=== PATIENT | male | born 1950 | race Hispanic/Latino ===

== ENCOUNTER 2017-02-09 14:54 | Outpatient (CLI) | payer MEDICARE, MEDICAID ==
--- NOTE | 2017-02-09 17:05 | RAD ---
CHEST 2 VIEWS: Date: 02/09/17 HISTORY: Dyspnea. COMPARISON: Chest 2 views dated 08/24/16. FINDINGS: There are mild increased interstitial markings throughout the lungs. This is worse than on the elizabeth rison examination. No pneumothorax or effusion. Moderate spondylosis. Cardiac silhouette and mediastinal contours are similar. IMPRESSION: Increased interstitial markings from the prior examination, likely edema superimposed on chronic kyleigh nges. POS: [facility]
== END 2017-02-09 14:55 | disposition home or self-care (01) ==
LOC: RAD 14:54
PROVIDERS: ATTEND Internal Medicine Pulmonary Disease
DX: R06.00 Dyspnea, unspecified (principal)
CPT/HCPCS: 71020

== ENCOUNTER 2017-08-28 12:24 | Emergency (ER) | payer MEDICARE, OTHER ==
[2017-08-28] MEDS ORDERED: diphenhydrAMINE 25 MG CAP ONE (12:38)
[2017-08-28] MEDS ORDERED: Acetaminophen 500 MG TAB ONE (12:38)
== END 2017-08-28 12:52 | disposition home or self-care (01) ==
LOC: ERS 12:24
DX: T63.461A Toxic effect of venom of wasps, accidental (unintentional), initial encounter (principal); E11.9 Type 2 diabetes mellitus without complications; E03.9 Hypothyroidism, unspecified; F41.9 Anxiety disorder, unspecified; F32.9 Major depressive disorder, single episode, unspecified; F17.210 Nicotine dependence, cigarettes, uncomplicated; I25.10 Atherosclerotic heart disease of native coronary artery without angina pectoris; K21.9 Gastro-esophageal reflux disease without esophagitis; I25.2 Old myocardial infarction; I10 Essential (primary) hypertension; Z79.82 Long term (current) use of aspirin; Z79.899 Other long term (current) drug therapy; Z79.4 Long term (current) use of insulin
CPT/HCPCS: 99282

== ENCOUNTER 2017-09-25 07:31 | Day surgery (SDC) | payer MEDICARE, MEDICAID ==
[2017-09-24 13:34] VITALS: BMI 35.3
[~2017-09-25 07:31] MED LIST: Prevnar 13-Val Conj/PF 0.5 ML SYRINGE IM ONE
[2017-09-25 08:18] LABS: BUN (Urea Nitrogen) 12 mg/dL (8.4-25.7); Calc. Creatinine Clearance 120 mL/min (70-130); Estimated GFR-MDRD Greater than 90
--- NOTE | 2017-09-25 09:17 | RAD ---
LUMBAR SPINE MYELOGRAM: DATE: 09/25/17. HISTORY: Spondylosis and radiculopathy, back pain. FINDINGS: Audio Visual Production Specialist images demonstrates multilevel disk space narrowing and osteophyte formation involving the lowe r thoracic spine and the lower lumbar spine. There is multilevel facet hypertrophy involving the low er lumbar spine. Informed consent obtained prior to the procedure. The patient was placed on the fluoroscopic table in the oblique prone position and the skin overlying the lumbar spine was prepped and draped in normal sterile fashion. The skin overlying the L4-5 leve l was anesthetized with 1% buffered Lidocaine. With intermittent fluoroscopic guidance, a 22-gauge spinal needle was advanced into the thecal sac at L4-5 and removal of the stylette yields clear cerebrospinal fluid. Subsequently, approximately 10 c c of Isovue-200 was injected, outlining nerve roots of the cauda equina and filling the thecal sac. The needle was removed. The patient tolerated the procedure well and was sent to the CT scanner for CT myelogram of the lumbar spine. IMPRESSION: Successful lumbar spine myelogram as described above. CT myelogram of the lumbar spine to follow. POS: [facility]
[2017-09-25 09:30] VITALS: BP 140/63; TEMP 98.2
--- NOTE | 2017-09-25 10:09 | CT ---
MYELOGRAM OF THE LUMBAR SPINE: DATE: 09/25/17. HISTORY: Back pain, lumbar radiculopathy. TECHNIQUE: Serial axial CT imaging is obtained at 2.5 mm intervals from the lower thoracic spine through the sac rum following the intrathecal administration of Isovue-200. Coronal and sagittal reformatted imaging provided. FINDINGS: Director Life images demonstrates a total hip arthroplasty on the right. There is a small left adrenal nodule measuring 1.2 cm with Hounsfield units of -3, evidence of a marcos gn left adrenal adenoma. There are scattered atherosclerotic calcifications of the abdominal aorta a nd its branches, especially the infrarenal abdominal aorta. There is no widening of the sacroiliac joints. There is good opacification of the contents of the th ecal sac. There is no anterolisthesis or retrolisthesis seen within the lumbar spine. T11-12: Minimal disk bulge and mild bilateral facet hypertrophy with no significant central canal o r neural foraminal stenosis. T12-L1: There is a small left foraminal disk protrusion. There is no significant central canal or n eural foraminal stenosis. L1-2: Mild disk space narrowing and mild bilateral facet hypertrophy with no significant central can al or neural foraminal stenosis. L2-3: Bilateral facet hypertrophy and hypertrophy of the ligamentum flavum noted, right greater than left. Mild disk bulge. Mild central canal stenosis. Mild bilateral neural foraminal stenosis, rig ht greater than left. L3-4: There is disk space narrowing, degenerative end plate change, and vacuum disk formation. Ther e is bilateral facet hypertrophy. There is mild disk bulge with mild central canal stenosis. There is moderate bilateral neural foraminal stenosis, right greater than left. There is a vacuum disk. L4-5: Bilateral laminectomy change noted. Mild disk bulge. No central canal stenosis. Moderate ri ght and moderate left neural foraminal stenosis. L5-S1: Bilateral mild facet hypertrophy, right greater than left. There is a questionable very smal l left paracentral disk protrusion, best seen on sagittal image 34. There is no significant central canal or neural foraminal stenosis. There is mild osteophyte encroachment on the left neural foramen . The conus medullaris terminates at the T12-L1 level. IMPRESSION: 1. There is no acute fracture or evidence of dislocation. No worrisome lytic or blastic bone lesion . 2. Multilevel lumbar spine degenerative change as described above. POS: [facility]
[2017-09-25] MEDS ORDERED: Iopamidol-M 200 41% 20 ML VIAL ONE (15:13)
== END 2017-09-25 10:10 | disposition home or self-care (01) ==
LOC: RAD 07:31
PROVIDERS: ATTEND Anesthesiology
DX: M47.26 Other spondylosis with radiculopathy, lumbar region (principal); M46.1 Sacroiliitis, not elsewhere classified; M70.62 Trochanteric bursitis, left hip; M70.61 Trochanteric bursitis, right hip; G89.29 Other chronic pain; M06.9 Rheumatoid arthritis, unspecified; I11.0 Hypertensive heart disease with heart failure; I50.9 Heart failure, unspecified; G47.30 Sleep apnea, unspecified; Z68.35 Body mass index [BMI] 35.0-35.9, adult; Z79.02 Long term (current) use of antithrombotics/antiplatelets; Z79.899 Other long term (current) drug therapy
CPT/HCPCS: 36415; 62304; 72132; 82565; 84520

== ENCOUNTER 2018-01-15 13:31 | Outpatient (CLI) | payer MEDICARE, MEDICAID ==
--- NOTE | 2018-01-16 07:39 | RAD ---
TWO VIEWS CHEST: HISTORY: Dyspnea. DATE: 11/14/17. COMPARISON: Previous exam from 02/09/17. FINDINGS: Two views chest demonstrate a dual-lead intracardiac defibrillator. Pulmonary vascular congestion is seen. Extensive bilateral interstitial densities seen. These have appear to have increased since the previ ous exam and may represent interstitial edema or fibrotic changes. There may also be some areas of s ubtle patchy airspace opacities in the right lower lobe. This may represent an area of right lower l obe pneumonia. IMPRESSION: 1. Area of increasing opacity in the right lung base compatible with possible pneumonia. 2. Increased interstitial markings compatible with interstitial fibrosis or edema. Followup films t o resolution recommended. POS: [facility]
== END 2018-01-15 13:32 | disposition home or self-care (01) ==
LOC: RAD 13:31
PROVIDERS: ATTEND Internal Medicine Pulmonary Disease
DX: R06.00 Dyspnea, unspecified (principal); R91.8 Other nonspecific abnormal finding of lung field
CPT/HCPCS: 71046

== ENCOUNTER 2018-02-20 13:27 | Outpatient (CLI) | payer MEDICARE, MEDICAID | END 2018-02-20 13:28 | disposition home or self-care (01) | LOC: CP 13:27 | PROVIDERS: ATTEND Internal Medicine Pulmonary Disease | DX: J44.9 Chronic obstructive pulmonary disease, unspecified (principal); G47.33 Obstructive sleep apnea (adult) (pediatric) | CPT/HCPCS: 94010; 94727 ==

== ENCOUNTER 2018-03-21 19:30 | Outpatient (CLI) | payer MEDICARE, MEDICAID | END 2018-03-21 19:31 | disposition home or self-care (01) | LOC: SLEEPLAB 19:30 | PROVIDERS: ATTEND Internal Medicine Pulmonary Disease | DX: G47.33 Obstructive sleep apnea (adult) (pediatric) (principal); R06.83 Snoring; G47.00 Insomnia, unspecified; J44.9 Chronic obstructive pulmonary disease, unspecified; F32.9 Major depressive disorder, single episode, unspecified; E66.9 Obesity, unspecified; G47.61 Periodic limb movement disorder; Z68.37 Body mass index [BMI] 37.0-37.9, adult | CPT/HCPCS: 95811 ==

== ENCOUNTER 2019-03-27 14:30 | Outpatient (CLI) | payer MEDICARE, MEDICAID ==
--- NOTE | 2019-03-27 15:09 | RAD ---
4 views cervical spine: 03/27/2019 COMPARISON: None HISTORY: Cervical pain, headaches FINDINGS: Frontal, lateral, swimmer's lateral view, and open-mouth odontoid view provided. Moderate degenerative change at the atlantoaxial interspace. Mild anterior osteophyte formation at C4 -5 and C5-6. Open-mouth odontoid view demonstrates a normal-appearing dens and C1-2 articulation. Incompletely imaged transvenous pacing leads are present. Cervicothoracic junction appears grossly un remarkable on the swimmer's lateral view. No prevertebral soft tissue swelling. IMPRESSION: Chronic findings as above.
== END 2019-03-27 14:31 | disposition home or self-care (01) ==
LOC: BICRAD 14:30
PROVIDERS: ATTEND Anesthesiology Pain Medicine
DX: M54.2 Cervicalgia (principal); M47.812 Spondylosis without myelopathy or radiculopathy, cervical region; M25.78 Osteophyte, vertebrae
CPT/HCPCS: 72040

== ENCOUNTER 2019-05-15 03:30 | Inpatient (IN) | payer MEDICARE, MEDICAID ==
[2019-05-15] MEDS ORDERED: Morphine 4 MG/ML VIAL ONE ×2 (03:53→05:40)
[2019-05-15 03:58] LABS: #Eosinphils 0.3 thou/uL (0.0-0.7); #Lymphocytes 1.2 thou/uL (1.20-3.40); #Monocytes 0.3 thou/uL (0.11-0.59); #Neutrophils 11.9 thou/uL (1.40-6.50); %Basophils 0.2 % (0.0-1.0); %Eosinophils 2.2 % (0.0-10.0); %Lymphocytes 8.4 % (21.0-51.0); %Neutrophils 87.2 % (42.0-75.0); Hemoglobin 13.7 g/dL (14.0-18.0); Mean Corpuscular HGB CONC 32.6 g/dL (32.0-36.0); Mean Corpuscular Hemoglobin 30.9 pg (27.0-31.0); Mean Corpuscular Volume 94.8 fL (78.0-98.0); Mean Platelet Volume 7.5 fL (7.4-10.4); Platelet Count 281 thou/uL (130-400); RBC Distribution Width 12.5 % (11.5-14.5); Red Blood Cell (RBC) Count 4.43 mill/uL (4.70-6.10); White Blood Cell (WBC) Count 13.7 thou/uL (4.8-10.8)
[2019-05-15 04:06] LABS: PTT 29.6 SEC (22.9-36.1); Prothrombin Time 13.5 SEC (12.0-14.7)
[2019-05-15 04:18] LABS: ALT (SGPT) 15 U/L (8-55); AST (SGOT) 15 U/L (5-34); Alkaline Phosphatase 126 U/L (40-110); Anion Gap 15 mmol/L (10-20); BUN (Urea Nitrogen) 15 mg/dL (8.4-25.7); Bilirubin, Total 0.3 mg/dL (0.2-1.2); Calc. Creatinine Clearance 0 mL/min (70-130); Calcium 9.4 mg/dL (7.8-10.44); Carbon Dioxide 23 mmol/L (23-31); Chloride 104 mmol/L (98-107); Estimated GFR-MDRD 46; Glucose 402 mg/dL (80-115); Potassium 4.8 mmol/L (3.5-5.1); Sodium 137 mmol/L (136-145)
--- NOTE | 2019-05-15 05:24 | PDOC.FPRHP ---
- History of Present Illness Chief Complaint: abd pain, nausea History of Present Illness: Pt is 69-yo M who presented to ED for abdominal pain which started last night after eating dinner. He ate a normal dinner then experienced acute onset of sharp abdominal pain diffusely. Gerlach nauseous. He vomited a little bit once and had 2 BM. + subjective fever and sweats. This has never happened to him before. Denies chest pain. He has some shortness of breath and cannot take a deep breath due to the pain. ED Course: 2L NS, morphine. Consulted surgery. - Allergies/Adverse Reactions Allergies Allergy/AdvReac Type Severity Reaction Status Date / Time No Known Allergies Allergy Verified 09/24/17 13:24 - Home Medications Medication Instructions Recorded Confirmed Type metFORMIN HCl 1,000 mg PO BID-WM 06/15/13 05/15/19 History Gabapentin 800 mg PO QID 06/16/13 05/15/19 History Levothyroxine Sodium [Synthroid] 50 mcg PO DAILY 06/16/13 05/15/19 History Carvedilol [Coreg] 6.25 mg PO BID 10/28/13 05/15/19 History HYDROcodone Bit/APAP 10/325 [Ferguson] 1 tab PO TID PRN 01/13/16 05/15/19 History Sacubitril/Valsartan 49/51 1 each PO BID 01/13/16 05/15/19 History [Entresto 49 mg-51 mg Tablet] Aspirin 81 mg PO DAILY 09/25/17 05/15/19 History Atorvastatin Calcium 10 mg PO DAILY 09/25/17 05/15/19 History Insulin NPL/Insulin Lispr [HumaLOG 27 unit SC BID-AC 09/25/17 05/15/19 History Mix 75/25] Pantoprazole [Protonix] 20 mg PO DAILY 09/25/17 05/15/19 History Methocarbamol 500 mg PO TID PRN 05/15/19 05/15/19 History Rivaroxaban [Xarelto] 2.5 mg PO BID 05/15/19 05/15/19 History - History PMHx: CAD w/ hx of stents, HLD, hypothyroidism, GERD, iron deficiency, T2DM on insulin, chronic back pain on opioids and muscle relaxants PSHx: - open cholecystectomy - appendectomy - R total hip replacement FHx: not assessed Social: - current smoker: 1-2 cigs per week - Denies alcohol, other drugs - has 2 dogs at home, is , worried about who will take care of dogs while he is hospitalized. - Review of Systems General: reports: fever/chills. denies: weight/appetite/sleep changes ENT: denies: nasal congestion Respiratory: reports: cough (chronic), shortness of breath Cardiovascular: denies: chest pain, palpitation, edema Gastrointestinal: reports: nausea, vomiting, abdominal pain. denies: diarrhea, constipation, GI bleeding Genitourinary: denies: dysuria Skin: denies: rashes, jaundice Musculoskeletal: denies: pain, tenderness Neurological: denies: syncope, weakness Psychological: denies: anxiety, depression - Vital signs BP: 165/75, Pulse: 69, Resp: 17, Pain: 3, O2 sat: 97 on (Room Air), Time: 2019 04:24. - Physical Exam Constitutional: NAD, awake, alert and oriented -Constitutional: appears to be in moderate pain HEENT: normocephalic and atraumatic, conjunctiva clear, grossly normal vision, grossly normal hearing Neck: supple, no thyromegaly Heart: RRR, normal S1/S2, no murmurs/rubs/gallops Lungs: CTAB, no respiratory distress Abdomen: soft, bowel sounds present (hyperactive) -Abdomen: mild distension, dull to percussion, TTP over RUQ/epigastrium/RLQ. No left- sided abdominal pain. Musculoskeletal: normal structure Neurological: no focal deficit Skin: no rash/lesions Heme/Lymphatic: no unusual bruising or bleeding Psychiatric: normal mood and affect, intact recent and remote memory FMR H&P: Results - Labs Result Diagrams: 05/15/19 03:50 05/15/19 03:50 Lab results: WBC 13.7 thou/uL (4.8-10.8) H 05/15/19 03:50 Hgb 13.7 g/dL (14.0-18.0) L 05/15/19 03:50 Hct 42.0 % (42.0-52.0) 05/15/19 03:50 MCV 94.8 fL (78.0-98.0) 05/15/19 03:50 Plt Count 281 thou/uL (130-400) 05/15/19 03:50 Neutrophils % 87.2 % (42.0-75.0) H 05/15/19 03:50 Sodium 137 mmol/L (136-145) 05/15/19 03:50 Potassium 4.8 mmol/L (3.5-5.1) 05/15/19 03:50 Chloride 104 mmol/L (98-107) 05/15/19 03:50 Carbon Dioxide 23 mmol/L (23-31) 05/15/19 03:50 BUN 15 mg/dL (8.4-25.7) 05/15/19 03:50 Creatinine 1.51 mg/dL (0.7-1.3) H 05/15/19 03:50 Glucose 402 mg/dL (80-115) H 05/15/19 03:50 Lactic Acid 2.7 mmol/L (0.5-2.2) H 05/15/19 04:06 Calcium 9.4 mg/dL (7.8-10.44) 05/15/19 03:50 Total Bilirubin 0.3 mg/dL (0.2-1.2) 05/15/19 03:50 AST 15 U/L (5-34) 05/15/19 03:50 ALT 15 U/L (8-55) 05/15/19 03:50 Alkaline Phosphatase 126 U/L (40-110) H 05/15/19 03:50 Serum Total Protein 8.0 g/dL (5.8-8.1) 05/15/19 03:50 Albumin 4.0 g/dL (3.4-4.8) 05/15/19 03:50 - Radiology Interpretation CT scan - abdomen Status: image reviewed by me, pending Additional comment: dissection protocol, partial SBO. Abdominal x-ray Status: image reviewed by me, pending Additional comment: confirmed placement of NG tube FMR H&P: A/P - Problem List (1) Partial small bowel obstruction Current Visit: Yes Status: Acute (2) CAD (coronary artery disease) Current Visit: No Status: Acute Code(s): I25.10 - ATHSCL HEART DISEASE OF [place] CORONARY ARTERY W/O ANG PCTRS (3) Hyperlipemia Current Visit: No Status: Acute Code(s): E78.5 - HYPERLIPIDEMIA, UNSPECIFIED (4) Iron deficiency anemia Current Visit: No Status: Acute Code(s): D50.9 - IRON DEFICIENCY ANEMIA, UNSPECIFIED (5) Diabetes mellitus Current Visit: No Status: Chronic Code(s): E11.9 - TYPE 2 DIABETES MELLITUS WITHOUT COMPLICATIONS Qualifiers: Diabetes mellitus type: type 2 (6) GERD (gastroesophageal reflux disease) Current Visit: No Status: Chronic Code(s): K21.9 - GASTRO-ESOPHAGEAL REFLUX DISEASE WITHOUT ESOPHAGITIS (7) Hypertension Current Visit: No Status: Chronic Code(s): I10 - ESSENTIAL (PRIMARY) HYPERTENSION (8) Hypothyroidism Current Visit: No Status: Chronic Code(s): E03.9 - HYPOTHYROIDISM, UNSPECIFIED - Plan 69 yo M w/ multiple chronic medical conditions: Partial small bowel obstruction - surgery Dr. Fried consulted from ED. They will see pt today. Appreciate recs. - NG tube in place, low int suction - NPO, oral home meds given through NG - ordered gastrografin study for this AM. - pain control w/ morphine 4mg q4h prn and 2mg q2h prn for breakthrough - zofran for nausea ERVIN - LR at 150 mL/hr - recheck labs in AM. Chronic conditions: Iron deficiency anemia - pt takes slow Fe and OTC ferrous sulfate. Will hold for now as this may cause constipation and slow down pt's gut. Hypothyroidism - continue home meds Chronic back pain - takes Ferguson and methocarbamol at home. Will hold Ferguson since on IV morphine. - May continue methocarbamol if can be given through NG. T2DM - takes 27 units 75/25 insulin BID. Will hold while NPO. - Moderate sliding scale. - Hold metformin while NPO - hold gabapentin. HTN CHF CAD HLD - continue home meds except xarelto - hold xarelto. Will give heparin TID in case of surgery. GERD - continue home ppi Code: full Diet: NPO, strict. Home meds through NG. VTE ppx: heparin GI ppx: none Paula Weems MD PGY1 Disposition/LOS: admit to inpatient surgery. LOS > 48H. FMR H&P: Upper Level - Plan Date/Time: 05/15/19 0522 PCP: [facility] HPI: This is a 69 yo M being admitted for partial small bowel obstruction. Significant PMH includes CAD s/p 3 stents, hypothyroidism, DM2, GERD, HTN, and chronic leg/back pain. He states after he ate supper last night he developed a sharp epigastric pain which did not radiate. He went to sleep and woke up and the pain had worsened so he went to the ED for evaluation. He did have 2 BMs overnight. He did have one episode of vomiting. Denies fevers, chills, or sweats. REVIEW OF SYSTEMS: Gen: no fever, chills, or sweats Neuro: denies headache Eyes: no visual changes ENT: no hearing changes, no sore throat, no congestion Resp: denies cough, SOB Card: denies CP, palpitations GI: see hpi Heme: no easy bruising/bleeding Skin: no rash, no erythema, denies oral sores/ulcers PHYSICAL EXAMINATION: General: NAD, alert and oriented x3 HEENT: PERRLA, EOMI, normal sclera, oropharynx without erythema or exudate Neck: Supple. Full ROM. Heart/Cardiovascular System: RRR, Cap refill < 3 seconds Lungs/Respiratory System: CTA-B, no resp distress Abdomen/Gastro-Intestinal System: NG in place, bowel sounds appreciated, mild distension, mild tenderness to deep palpation throughout, no rebound/guarding Extremities: Warm extremities. No cyanosis or edema Neuro: No gross deficits appreciated. CN 2-12 grossly intact Psychiatry: Awake, Alert and cooperative with exam Skin: No lesions, rashes, or ulcers Musculoskeletal: Full ROM A/P: # Partial small bowel obstruction - Noted on CT scan, surg consulted appreciate recs, requested admit to medicine service - Suspect adhesive source 2/2 previous abdominal surgeries (appy, jeri) - Will order gastrograffin f/u - NPO, NG tube, Pain control - LA 2.7, WBC 13.7, s/p 2L NS in ED # OZZIE +, SS-A + - Referred to rheumatology from clinic - OZZIE 1:1280, SS-A pattern - may be source for pattern noted on CXR # s/p acute bronchitis - treated with azithro and prednisone in clinic on 05/05 - atypical consolidation noted on CXR # Adrenal nodule - Likely incidentaloma, await official read # DM2, GERD, HTN - home meds # chronic pain - follows with pain mgmt. in [place] # HFrEF, not in exacerbation - last echo in [facility] was October 2015 - EF 40-45%, monitor volume status Fluids: LR 150ml/hr Code status: full PPx: heparin Dispo: inpt Addendum - Attending - Attending Attestation Date/Time: 05/15/19 1120 I personally evaluated the patient and discussed the management with Dr. Weems /Helen. I agree with the History, Examination, Assessment and Plan documented above with any addition or exceptions noted below. Patient here with nausea/vomiting, and 2 episodes of bowel movements. For some reason, CT Abdomen performed which was concerning for partial SBO despite flatus and evidence of bowel motility. He was started on NGT and admitted for monitoring. This morning, he reports an additional 2 BMs that he reports are formed stools. He denies pain. He will undergo small bowel follow through study and possible d/c of NGT. Gen Surg consulted by ED and will await their recommendations. Continue IV fluid hydration.
[2019-05-15] MEDS ORDERED: Ondansetron PF 4 MG/2 ML Vial IVP PRN ×2 (05:51→22:01)
[2019-05-15] MEDS ORDERED: Dextrose 5% in Water 1,000 ML IV PRN (05:51)
[2019-05-15] MEDS ORDERED: Dextrose 50% Abboject 50 ML SYRINGE SLOW IVP PRN (05:51)
[2019-05-15] MEDS ORDERED: Morphine 2 MG/ML SYRINGE SLOW IVP PRN (06:02)
[2019-05-15] MEDS ORDERED: HumaLOG 300 UNITS/3 ML VIAL SC PRN (06:03)
[2019-05-15] MEDS ORDERED: Methocarbamol 500 MG TAB PO PRN (06:42)
[2019-05-15 07:13] LABS: Lactic Acid 2.4 mmol/L (0.5-2.2)
--- NOTE | 2019-05-15 07:58 | RAD ---
AP CHEST: HISTORY: Abdominal pain. COMPARISON: 08/24/2016. FINDINGS/IMPRESSION: Heart size is upper normal and stable. Dual-lead pacemaker device is noted. Mild vascular engorgeme nt with mild interstitial prominence. No focal infiltrate or evidence of significant effusion. POS: [facility]
--- NOTE | 2019-05-15 08:07 | CT ---
PRELIMINARY REPORT/[facility]/EMERGENCY AFTER HOURS PROCEDURE: Receipt of this report by the clinical staff was confirmed with ROSINA LERMA MD by Cortez Gaitan on May 15, 2019 05:02:00 TRACTOR CRANE OPERATOR. Addendum electronically signed by Fareed Gaitan on May 15, 2019 5:02:23 AM TRACTOR CRANE OPERATOR PROCEDURE: CTA Chest, Abdomen, and Pelvis with IV Contrast Material . HISTORY: Abdomen pain since 11 PM with history of diabetes. TECHNIQUE: Axial images were performed with the administration of iodinated contrast intravenously wi th multiplanar and 3D (maximum intensity projection and surface-shaded) reformations. The patient was not given oral contrast material. COMPARISONS: None . FINDINGS: Mild atherosclerosis thoracic aorta with no aneurysm or dissection. Calcified subcarinal l ymph nodes. Normal size heart with no pericardial fluid. Pacemaker leads in the RIGHT heart. Reticulonodular consolidation both lung basurto greatest on the RIGHT could represent atypical pneumon ia. No pleural fluid or pulmonary masses. Some punctate calcified granulomas in the spleen. Liver and pancreas are unremarkable. 1.2 cm LEFT adrenal nodule. Kidneys show normal enhancement wi th no masses or obstructive uropathy. 1 cm RIGHT renal cortical cyst. There has been previous cholecystectomy with normal sized biliary tree. No abdominal ascites or pneumoperitoneum. Mild athe rosclerosis aorta. No lymphadenopathy. Possible early partial small bowel obstruction with transition point at about image 140 series 2 anteriorly to the RIGHT of midline may represent an adhe costa. No bowel inflammation. Appendix is not visualized. Pelvis shows no masses or free fluid. Urinary bladder shows some contrast in the dependent portion. No acute bony abnormality. Total hip prosthesis on the RIGHT.. IMPRESSION: Reticulonodular consolidation both lung basurto could be related to atypical pneumonia such as mycopla sma, chlamydia, viral, or fungal infection. Partial small bowel obstruction. Small LEFT adrenal nodule probably representing an adenoma. No other acute change identified. ELECTRONICALLY SIGNED BY: Ozzy Carolina MD May 15, 2019 5:00:39 AM TRACTOR CRANE OPERATOR FINAL REPORT: CT ARTERIOGRAM CHEST WITH IV CONTRAST AND 3D IMAGING CT ARTERIOGRAM ABDOMEN WITH IV CONTRAST AND 3D IMAGING CT PELVIS WITH IV CONTRAST: DATE: 05/15/2019. TIME: Performed on emergency basis at 0435 hours. COMPARISON: CT abdomen from 04/21/2010. FINDINGS: Agree with the preliminary report by Dr. Carolina from [facility]. No CT evidence of aortic dissec tion or other acute complication. Fine interstitial prominence throughout the lungs, right greater than left, could reflect an acute process such as mycoplasma or may be related to chronic interstitia l disease. Gentle transition of the small bowel caliber from dilated ileum with fecalization of internal materia l to decompressed distal ileum. Possible low-grade or chronic obstruction. The small left adrenal nodule is stable and likely represents an adenoma. There is calcification throughout the arterial structures and evidence of healed granulomatous diseas e. Transcribed Date/Time: 05/15/2019 7:53 AM
--- NOTE | 2019-05-15 08:45 | RAD ---
SUPINE ABDOMEN: INDICATION: Assess NG tube placement. FINDINGS/IMPRESSION: NG tube appears to pass through the EG junction. The tip overlies the epigastric region and would be located in the epigastric fundus just beyond the EG junction. Suggest further advancement into the antral region of the stomach. POS: [facility]
[2019-05-15] MEDS: Lactated Ringer's 1,000 ML IV SCH ×2 (09:00→12:57)
[2019-05-15] MEDS ORDERED: Heparin 5,000 UNITS/ML VIAL SC SCH (09:00)
[2019-05-15] MEDS ORDERED: Ondansetron PF 4 MG/2 ML Vial ONE (09:26)
[2019-05-15] MEDS ORDERED: Vecuronium 10 MG VIAL ONE (09:26)
[2019-05-15] MEDS ORDERED: Lidocaine 1% PF 5 ML VIAL ONE (09:26)
[2019-05-15] MEDS ORDERED: Rocuronium Bromide 10 MG/ML (10ML VIAL) ONE (09:26)
[2019-05-15] MEDS ORDERED: Dexamethasone 20 MG/5 ML VIAL ONE (09:26)
[2019-05-15] MEDS ORDERED: Glycopyrrolate 0.2 MG/ML 5 ML SYRINGE ONE (09:26)
[2019-05-15] MEDS ORDERED: PROPOFOL 200 MG/20 ML VIAL ONE (09:26)
[2019-05-15] MEDS ORDERED: PHENYLEPHRINE-NS 100 MCG/ML 10 ML SYRINGE ONE (09:26)
[2019-05-15] MEDS: Morphine 4 MG/ML VIAL SLOW IVP PRN ×2 (11:51→12:46)
[2019-05-15] MEDS: Aspirin Chewable 81 MG TAB PO SCH (12:27)
[2019-05-15] MEDS: Atorvastatin Calcium 10 MG TAB PO SCH (12:27)
[2019-05-15] MEDS: Carvedilol 6.25 MG TAB PO SCH ×2 (12:27→23:44)
[2019-05-15] MEDS: Sacubitril 49 MG/Valsartan 51 MG TABLET PO SCH ×2 (12:28→23:44)
[2019-05-15] MEDS: Levothyroxine Sodium 50 MCG TAB PO SCH (12:28)
[2019-05-15] MEDS: Enoxaparin Sodium 100 MG/ML SYRINGE SC SCH ×2 (12:37→23:45)
[2019-05-15] MEDS ORDERED: Morphine 4 MG/ML VIAL SLOW IVP SCH (12:45)
[2019-05-15] MEDS ORDERED: Iopamidol-370 76% 500 ML 1 ML ONE (14:26)
[2019-05-15] MEDS ORDERED: MD-Gastroview 120 ML BOT ONE (14:46)
--- NOTE | 2019-05-15 14:47 | CON ---
DATE OF CONSULTATION: CHIEF COMPLAINT: Abdominal pain. HISTORY OF PRESENT ILLNESS: Mr. Arvizu is a 69-year-old man with history of an appendectomy and an open cholecystectomy, who presented to the emergency room with several hour history of acute abdominal pain. He has had previous similar episodes, but none as severe. He was having nausea and vomiting, but this did not relieve his symptoms. He has been having normal bowel movements up until the onset of his pain and even had a bowel movement down in the emergency room. He states that these have been normal. No fevers or chills. He states that after receiving NG tube and pain medicine in the ER, he was feeling better this morning and was not having much pain at all. However, when he went down to the radiology suite and received Gastrografin through his NG tube, his abdominal pain came back and was very severe and has not been relieved by the nurse placing the NG tube back to suction or administering morphine. PAST MEDICAL HISTORY: Coronary artery disease, diabetes, hypertension, hypothyroidism, reflux, iron deficiency, and chronic back pain. PAST SURGICAL HISTORY: Back surgery, right total hip, appendectomy, open cholecystectomy. FAMILY HISTORY: Noncontributory. SOCIAL HISTORY: He smokes a couple of cigarettes occasionally, but does not smoke regularly. He does not drink or use other drugs. He was brought to the hospital by a friend as he is a . REVIEW OF SYSTEMS: Ten system review of systems is negative except per HPI. He denies any recent changes in his bowel habit. He denies constipation, diarrhea, melena, or rectal bleeding. PHYSICAL EXAMINATION: VITAL SIGNS: Temperature 98.2, heart rate 84, respirations 12, blood pressure 181/84, 99% saturated on room air. GENERAL: Reveals an obese gentleman, in obvious distress, rocking back and forth in the bed and changing position and standing up trying to find a comfortable position. HEENT: Unremarkable. NECK: Supple without lymphadenopathy or thyroid nodules. HEART: Regular in its rate and rhythm without murmurs, rubs, or gallops. LUNGS: Clear to auscultation bilaterally. ABDOMEN: Soft and distended with diminished bowel sounds. He is diffusely tender to palpation. He has a palpable mass in the right upper quadrant, which he states he just noticed since this morning, which he states has not been present before. He is tender to palpation of this area. There is no palpable hernia however. EXTREMITIES: Warm without edema. NEUROLOGIC: No focal deficits. PSYCHIATRIC: Alert, oriented, and appropriate. LABORATORY DATA: White count is elevated at 13.7, hematocrit 42, platelets 281. Coags are normal. BUN is 15 and creatinine is 1.5. Other electrolytes are normal. Glucose was 402 on admission. Lactate is elevated at 2.4. Alkaline phosphatase is 126. Other LFTs are normal. Troponin was less than 0.01. CT images are reviewed and I agree with the written report he has that looks like a small-bowel obstruction. There seems to be a chronic component to this as there is some fecalization near the transition point in the right upper quadrant near the site of his open cholecystectomy. This is also in the area where he has the palpable mass, which I believe is distended loop of bowel near this transition point. ASSESSMENT AND PLAN: Small-bowel obstruction with acute worsening after premature administration of Gastrografin. The patient has not passed any flatus since the onset of his abdominal pain and given his acute pain, he may need to be taken to the operating room for this obstruction if we cannot get him comfortable. We have placed his NG tube to suction to try to remove as much of the Gastrografin as possible, but unfortunately the immediate film showed that a lot of it had already passed into the dilated proximal small-bowel loop. I will continue to keep a close eye on him and if his abdominal pain does not resolve quickly, I will push him for the operating room. Job ID: [id number]
[2019-05-15] MEDS ORDERED: Lidocaine 1% w/Epinephrine 1:100K 20 ML VIAL ONE (15:07)
[2019-05-15] MEDS ORDERED: Bupivacaine 0.25% HCL 30 ML VIAL ONE (15:07)
[2019-05-15] MEDS ORDERED: Sodium Chloride 0.9% 1,000 ML IV SCH (15:15)
[2019-05-15] MEDS ORDERED: cefOXitin 2 GM in Sodium Chloride 0.9% 100 ML IVPB SCH (15:15)
[2019-05-15] MEDS ORDERED: Fentanyl 100 MCG/2 ML VIAL ONE ×3 (15:29→22:13)
[2019-05-15] MEDS ORDERED: Lidocaine 2% Jelly 5 ML TUBE ONE (15:29)
--- NOTE | 2019-05-15 15:47 | RAD ---
Small bowel follow-through HISTORY: Abdominal pain. Obstruction. FINDINGS: Hook And Eye Attacher KUB shows gas and stool throughout the small bowel and colon. After the instructor ballroom dancing image, nasogastric tube was advanced approximately 10 cm for better positioning. Oral contrast was administered. Early images show opacification of nondilated small bowel loops. There is a small hiatal hernia. Imag ing was carried out to 1.5 hours, with mildly distended small bowel loops seen throughout the abdomen. The colon is not reliably opacified. At the request of Dr. Fried, the exam was terminated and nasogastric suction restored. IMPRESSION: Small hiatal hernia. Incomplete small bowel follow-through. Colon was not reached at 1.5 hours.
[2019-05-15] MEDS ORDERED: Insulin Regular 300 UNITS/3 ML VIAL ONE (16:06)
[2019-05-15] MEDS ORDERED: Ketamine 50 MG/ML (10ML VIAL) ONE (16:19)
[2019-05-15] MEDS ORDERED: ceFOXitin 2 GM/50 ML Duplex BAG ONE (16:31)
[2019-05-15] MEDS ORDERED: cefOXitin 2 GM VIAL ONE ×2 (18:23→20:30)
[2019-05-15] MEDS ORDERED: Promethazine HCl 25 MG/ML VIAL IM PRN ×2 (21:54→22:01)
[2019-05-15] MEDS ORDERED: Promethazine HCl 25 MG/ML VIAL SLOW IVP PRN (21:54)
[2019-05-15] MEDS ORDERED: Ondansetron HCl/PF 4 MG/2 ML Vial IVP PRN (21:54)
[2019-05-15] MEDS ORDERED: diphenhydrAMINE 50 MG/ML VIAL IVP PRN (22:01)
[2019-05-15] MEDS ORDERED: diphenhydrAMINE 50 MG/ML VIAL IM PRN (22:01)
[2019-05-15] MEDS ORDERED: Naloxone HCl 0.4 mg/ml Vial IV PRN (22:01)
[2019-05-15] MEDS ORDERED: diphenhydrAMINE 25 MG CAP PO PRN (22:01)
[2019-05-15] MEDS ORDERED: Zolpidem Tartrate 5 MG TAB PO PRN (22:01)
[2019-05-15] MEDS ORDERED: Communication Order-Pharmacy FS SCH (22:15)
[2019-05-16] MEDS: Lactated Ringer's 1,000 ML IV SCH ×4 (00:02→16:29)
[2019-05-16] MEDS: cefOXitin Sodium/Dextrose,Iso 2 GM in Premix Bag 1 BAG IVPB SCH ×2 (01:17→09:29)
[2019-05-16 05:22] LABS: #Monocytes 0.8 thou/uL (0.11-0.59); %Lymphocytes 5.7 % (21.0-51.0); %Monocytes 4.3 % (0.0-10.0); Hemoglobin 12.2 g/dL (14.0-18.0); Mean Corpuscular HGB CONC 32.6 g/dL (32.0-36.0); Mean Corpuscular Volume 95.1 fL (78.0-98.0); Mean Platelet Volume 7.3 fL (7.4-10.4); Platelet Count 230 thou/uL (130-400); RBC Distribution Width 12.7 % (11.5-14.5); Red Blood Cell (RBC) Count 3.94 mill/uL (4.70-6.10); White Blood Cell (WBC) Count 17.8 thou/uL (4.8-10.8)
[2019-05-16 05:37] LABS: Phosphorus 3.5 mg/dL (2.3-4.7)
--- NOTE | 2019-05-16 05:38 | PDOC.FM ---
- Subjective Subjective: POD #1 lap bowel resection. Pt doing well this morning. Moderate pain but states controlled with COMMUNITY LIVING SPECIALIST. Unsure if passing gas. Tolerating ice chips. NG in place. No fever/chills, CP, SOB. Dias in place. - Objective MAR Reviewed: Yes Vital Signs & Weight: Vital Signs (12 hours) Temp Pulse Resp BP Pulse Ox 05/16/19 03:17 97.5 F L 89 16 133/71 93 L 05/15/19 23:55 93 L 05/15/19 23:30 98.4 F 74 18 176/73 H 93 L Weight Weight 99.79 kg I&O: 05/14/19 05/15/19 05/16/19 06:59 06:59 06:59 Intake Total 1750 Output Total 2750 Balance -1000 Result Diagrams: 05/16/19 04:56 05/16/19 04:56 Phys Exam - Physical Examination Constitutional: NAD (resting in bed, mild discomfort but in good spirits) HEENT: moist MMs NG tube in place Neck: supple Respiratory: no wheezing, no rales, no rhonchi, clear to auscultation bilateral Cardiovascular: RRR, no significant murmur, no rub Gastrointestinal: soft, non-tender, no distention, positive bowel sounds Laproscopic sites c/d/i, no drainage or erythema Musculoskeletal: no edema Neurological: non-focal, moves all 4 limbs Psychiatric: normal affect, A&O x 3 Dx/Plan (1) Partial small bowel obstruction Status: Acute (2) CAD (coronary artery disease) Code(s): I25.10 - ATHSCL HEART DISEASE OF [place] CORONARY ARTERY W/O ANG PCTRS Status: Chronic (3) Hyperlipemia Code(s): E78.5 - HYPERLIPIDEMIA, UNSPECIFIED Status: Chronic (4) Diabetes mellitus Code(s): E11.9 - TYPE 2 DIABETES MELLITUS WITHOUT COMPLICATIONS Status: Chronic Qualifiers: Diabetes mellitus type: type 2 Diabetes mellitus vermin exterminator insulin use: with care home use (5) Hypertension Code(s): I10 - ESSENTIAL (PRIMARY) HYPERTENSION Status: Chronic (6) Hypothyroidism Code(s): E03.9 - HYPOTHYROIDISM, UNSPECIFIED Status: Chronic - Plan Plan: 69 yo male with h/o HTN, CHF, GED, DMII presents for abd pain found to have SBO now POD #1 lap small bowel resection #Small bowel obstruction, s/p lap small bowel resection POD#1 - Presented with pain, n/v. CT dissection demonstrated partial SBO - Small bowel follow through stopped during study 2/2 pain from gastrografin, no passed of contrast into colon @ 1.5hr - Surg, Dr. Fried, consulted from ED, pt taken to OR for laparoscopic small bowel resection on 05/15, apprec recs and assistance - Cont NPO, NG tube in place draining 150cc - Dias in place, 500cc output, straw-colored urine - Anesthesia consulted for pain control with COMMUNITY LIVING SPECIALIST - Zofran and promethazine for nausea prn #ERVIN, improved - Cr 1.5 -> 1.11 - Cont LR @ 150cc/hr. Cont to monitor #DMII - 75/25 27u BID at home, will restart at 14u BID and monitor BG to adjust as needed - Hyperglycemic since admission to 300s. On Sliding scale - Accuchecks, hyperglycemic protocol - Holding home metformin #Iron def anemia - Hb 12.2, stable post-op. - Holding home iron 2/2 SE of constipation and while NPO #Hypothyroidism - Cont levothyroxine once able to advance diet #Chronic back pain - Takes norco and methocarbamol at home. Holding. - Cont COMMUNITY LIVING SPECIALIST for pain management #HTN - cont home meds when about to tolerate PO #CAD - Th lovenox, holding Xarelto. Reviewing records for indication for anticoagulation. - cont other home meds once tolerating PO #GERD - cont home protonix Code: full Diet: NPO, strict. VTE ppx: Th lovenox IVF: LR @ 150cc/hr Disposition/LOS: Admitted for SBO. Now POD #1 s/p lap small bowel resection. Tolerated procedure well. Cont bowel rest. Pending surgery recs. Anticipate hospitalization 3-5 days pending clinical course. Addendum - Attending - Attending Attestation Date/Time: 05/16/19 1051 I personally evaluated the patient and discussed the management with Dr. Chambers. I agree with the History, Examination, Assessment and Plan documented above with any addition or exceptions noted below. Patient here with suspected adhesive partial SBO based on CT imaging. He did not improve with Gastrografin admin and his pain increased. He was taken to OR overnight for unknown procedure as not currently an op report available. He reports improved pain today. Continues with bowel rest and NG tube suction. Will need improved glycemic control and insulin regimen altered today. We are confirming with his senior category manager his reason for being on NOAC as he is unsure why.
[2019-05-16 05:40] LABS: Anion Gap 11 mmol/L (10-20); BUN (Urea Nitrogen) 16 mg/dL (8.4-25.7); Calc. Creatinine Clearance 89 mL/min (70-130); Calcium 8.7 mg/dL (7.8-10.44); Carbon Dioxide 29 mmol/L (23-31); Chloride 107 mmol/L (98-107); Estimated GFR-MDRD 66; Glucose 213 mg/dL (80-115); Magnesium 1.7 mg/dL (1.6-2.6); Sodium 143 mmol/L (136-145)
[2019-05-16] MEDS: HumaLOG 300 UNITS/3 ML VIAL SC PRN (06:27)
[2019-05-16] MEDS ORDERED: FLU VACC TS2019-20(65YR UP)/PF 180 MCG/0.5 ML SYRINGE IM ONE (09:00)
[2019-05-16] MEDS ORDERED: Pantoprazole 40 MG VIAL IVP SCH (09:15)
[2019-05-16] MEDS: Carvedilol 6.25 MG TAB PO SCH (09:22)
[2019-05-16] MEDS: Atorvastatin Calcium 10 MG TAB PO SCH (09:22)
[2019-05-16] MEDS: Aspirin Chewable 81 MG TAB PO SCH (09:22)
[2019-05-16] MEDS: Levothyroxine Sodium 50 MCG TAB PO SCH (09:23)
[2019-05-16] MEDS: Sacubitril 49 MG/Valsartan 51 MG TABLET PO SCH (09:23)
[2019-05-16] MEDS: Enoxaparin Sodium 100 MG/ML SYRINGE SC SCH ×2 (09:30→20:59)
[2019-05-16] MEDS ORDERED: Chloraseptic Spray 180 ml Bottle PO PRN (14:32)
[2019-05-16] MEDS: HumuLIN 70/30 (300 UNITS/3 ML VIAL) SC SCH ×2 (16:30→20:59)
--- NOTE | 2019-05-16 19:54 | PDOC.GSPN ---
Surgery Progress Note: Subj - Subjective Narrative: Patient is still having a lot of pain but not as bad as yesterday. No nausea. He doesn't think he has passed any flatus yet. He has only been out of bed to the chair and ambulated short distances in the room. He does not want to have his Dias catheter removed today since he doesn't think he would be able to make it to the bathroom in time. No bowel movements. NG output is still bilious. Vital signs are okay. Abdominal incisions look good. He has minimal bowel sounds. Diffusely tender but no rigidity rebound or guarding. White count is up a little bit as is common postoperatively. Other labs are pretty stable. Assessment/plan: Status post extensive lysis of adhesions for dense chronic adhesions with evidence for chronic obstruction given extensive fecalization of the obstructed bowel. I anticipate that he will have a prolonged ileus. Continue NG until output diminishes he is passing flatus. Dr. Armstrong is following the patient over the weekend. Remove Dias catheter in the morning. Surgery Progress Note: Obj - Vital signs Vital signs: Vital Signs - Most Recent Temp Pulse Resp BP Pulse Ox 98.2 F 63 16 162/78 H 97 05/16/19 19:31 05/16/19 19:31 05/16/19 19:31 05/16/19 19:31 05/16/19 19:31 Surgery Progress Note: Results - Labs Result Diagrams: 05/16/19 04:56 05/16/19 04:56 Lab results: Laboratory Results - last 24 hr 05/16/19 05/16/19 12:25 16:14 POC Glucose 169 H 191 H - Radiology Interpretation CT scan - abdomen Status: image reviewed by me, pending Abdominal x-ray Status: image reviewed by me, pending
[2019-05-16] MEDS: fentaNYL Citrate/PF 2,000 MCG in Sodium Chloride 0.9% 60 ML IV PRN (20:49)
[2019-05-16] MEDS: Docusate Sodium 100 MG/10 ML UDCUP PO SCH (20:59)
--- NOTE | 2019-05-17 00:26 | OP ---
DATE OF PROCEDURE: 05/15/2019 PROCEDURE: Laparoscopic hand-assisted extensive lyses of adhesions. PREOPERATIVE DIAGNOSIS: Small bowel obstruction. POSTOPERATIVE DIAGNOSIS: Small bowel obstruction. HISTORY: Mr. Arvizu is a 69-year-old man, who presented to the hospital with bowel obstruction. His symptoms worsened after administration of Gastrografin, and the recommendation was made to proceed to the operating room for lysis of adhesions and possible bowel resection. FINDINGS: Multiple dense chronic adhesions primarily in the right upper quadrant and also in the lower abdomen. Multiple points of partial obstruction with the final transition point in the right upper quadrant with extensive fecalization of bowel contents at that location. Incidentally noted small bowel diverticulum in the most dilated segment of bowel. DESCRIPTION OF PROCEDURE: After informed consent was obtained and appropriate preoperative antibiotics administered, the patient was taken to the operating room. He was placed in supine position and general endotracheal anesthesia was administered. He was prepped and draped in a standard sterile fashion and local anesthesia infused through the skin and subcutaneous tissues at the level of the umbilicus. A transverse skin incision was made and dissection carried down to the fascia, which was incised. Stay sutures were placed, and the peritoneum was entered under direct vision. There were no adhesions at the level of the umbilicus. A 5 mm trocar was placed and carbon dioxide gas easily insufflated to an intraabdominal pressure of 15, which the patient tolerated well. The laparoscope was advanced into the abdominal cavity, which was carefully examined. There were no adhesions at the level of the umbilicus, but the patient had extensive adhesions in the right upper quadrant consistent with his history of open cholecystectomy in the past. Additional dissecting trocars were placed in the lateral abdomen under direct laparoscopic vision and careful adhesiolysis carried out. Omental adhesions to the anterior midline were divided using a ligature and small bowel adhesions were divided using sharp dissection. Enumerable interloop adhesions were taken down through the avascular plane and the small bowel loops which were adherent to the anterior abdominal wall were carefully mobilized away from the anterior abdominal wall and some segments, part of the adherent omentum was left on the bowel wall to prevent injury to the underlying intestine. In this manner, the small bowel was able to be completely mobilized off the anterior abdominal wall. The patient did have stomach which was densely adherent to the anterior abdominal wall in the right upper quadrant, and these adhesions were not completely taken down except as necessary to ensure that no small bowel loops were involved. The transverse colon was identified, and there were some dense adhesions between the transverse colon and the small bowel loops, which were carefully taken down through the avascular plane, avoiding injury to either structure. The transition point was identified. This was in the right upper quadrant near a segment of bowel, which was distended with fecalized contents. As the adhesions in this area were taken down, some of the fecalized contents could be seen to be moving into the distal decompressed bowel with peristalsis visible. The decompressed bowel was traced down to the ileocecal valve. There were some adhesions of the terminal ileum to the lateral abdominal sidewall, which were taken down through the avascular plane. The appendix appeared to be surgically absent. The cecum was quite high in the right upper quadrant. Attempts were then made to trace the small intestine retrograde from the most dilated segments. This was able to be accomplished, but as the more proximal small bowel was traced down into the pelvis, the patient was found to have an additional area of dense adhesions to the retroperitoneum in the midline, and adequate visualization of this area could not be accomplished laparoscopically. For this reason, a hand port was placed. A 6 cm periumbilical incision was made and dissection was carried down to the fascia, which was incised in the midline. A GelPort was placed and continued adhesiolysis carried out. The adhesions in this area appeared to be quite chronic and dense, consistent with the adhesions in the distal ileum in the right upper quadrant. These appeared to be creating some areas of partial obstruction as well with some change in the caliber of the bowel. These dense adhesions were carefully taken down through the avascular plane in portions as required, leaving segments of the serosal surface of the mesentery adherent to the bowel wall to avoid injury to the underlying bowel. With meticulous dissection, the adhesions in the lower midline to the retroperitoneum were able to be freed up, and the entire small bowel was able to be run from the ileocecal valve to the ligament of Treitz. The bowel was carefully examined and no evidence of bowel injury encountered. As the most dilated portion of the small intestine near the transition point was examined, the patient was incidentally noted to have a fairly broad base diverticulum of the small bowel near the mesenteric edge of the bowel. This was felt to be an incidental asymptomatic finding likely related to the chronic distention of the small bowel in that area. This was not felt to be a Meckel diverticulum as it was not antimesenteric in location. It was felt that resection of this diverticulum would have risks, which outweighed any possible benefit. The abdominal cavity was irrigated and hemostasis verified. The bowel was returned to its normal anatomic position, and the omentum drawn down over the bowel in the midline. The dissecting trocars removed under direct laparoscopic vision and hemostasis verified. The GelPort was then removed and Seprafilm placed inferior to the midline incision. The fascia was closed under direct vision with a running PDS suture with excellent technical result. Additional local anesthesia was infused for postoperative pain control, and all skin incisions were closed with 4-0 subcuticular Monocryl suture. Estimated blood loss was minimal. There were no complications. There were no specimens. Job ID: [id number]
[2019-05-17 05:17] LABS: #Basophils 0.1 thou/uL (0.0-0.2); #Eosinphils 0.1 thou/uL (0.0-0.7); #Lymphocytes 1.6 thou/uL (1.20-3.40); #Monocytes 0.5 thou/uL (0.11-0.59); #Neutrophils 8.4 thou/uL (1.40-6.50); %Basophils 0.6 % (0.0-1.0); %Eosinophils 1.4 % (0.0-10.0); %Lymphocytes 14.6 % (21.0-51.0); %Monocytes 4.9 % (0.0-10.0); %Neutrophils 78.6 % (42.0-75.0); Hemoglobin 11.2 g/dL (14.0-18.0); Mean Corpuscular HGB CONC 32.1 g/dL (32.0-36.0); Mean Corpuscular Volume 96.5 fL (78.0-98.0); Mean Platelet Volume 7.1 fL (7.4-10.4); Platelet Count 176 thou/uL (130-400); RBC Distribution Width 12.5 % (11.5-14.5); Red Blood Cell (RBC) Count 3.62 mill/uL (4.70-6.10); White Blood Cell (WBC) Count 10.7 thou/uL (4.8-10.8)
[2019-05-17 05:38] LABS: Anion Gap 11 mmol/L (10-20); BUN (Urea Nitrogen) 12 mg/dL (8.4-25.7); Calc. Creatinine Clearance 131 mL/min (70-130); Calcium 8.4 mg/dL (7.8-10.44); Carbon Dioxide 31 mmol/L (23-31); Chloride 105 mmol/L (98-107); Estimated GFR-MDRD Greater than 90; Glucose 136 mg/dL (80-115); Potassium 3.8 mmol/L (3.5-5.1); Sodium 143 mmol/L (136-145)
[2019-05-17] MEDS: Lactated Ringer's 1,000 ML IV SCH ×5 (05:55→17:17)
--- NOTE | 2019-05-17 06:03 | PDOC.FM ---
- Subjective Subjective: Pt remains with abdominal pain which is exacerbated by cough. He has had a cough since surgery with sticky sputum, fairly clear. Otherwise he requires EARLY MORNING pump for pain. He has not had a BM or passed flatus. - Objective Vital Signs & Weight: Vital Signs (12 hours) Temp Pulse Resp BP Pulse Ox 05/17/19 03:26 97.4 F L 74 18 174/77 H 96 05/16/19 23:22 98.3 F 62 18 167/83 H 96 05/16/19 20:45 97 05/16/19 19:31 98.2 F 63 16 162/78 H 97 Weight Weight 99.79 kg I&O: 05/15/19 05/16/19 05/17/19 06:59 06:59 06:59 Intake Total 1750 2300 Output Total 2750 1425 Balance -1000 875 Result Diagrams: 05/17/19 05:03 05/17/19 05:03 Phys Exam - Physical Examination Uncomfortable appearing, lying in bed w/o covers HEENT: moist MMs Wheezing on exam diffusely, clear to yellow, sticky sputum production no distress noted Cardiovascular: RRR, no significant murmur Gastrointestinal: soft, no distention, positive bowel sounds Tender to palpation diffusely, mild erythema surrounding incision No drainage from incisions Musculoskeletal: no edema, pulses present Psychiatric: A&O x 3 Dx/Plan (1) Partial small bowel obstruction Status: Acute (2) CAD (coronary artery disease) Code(s): I25.10 - ATHSCL HEART DISEASE OF [place] CORONARY ARTERY W/O ANG PCTRS Status: Chronic (3) Diabetes mellitus Code(s): E11.9 - TYPE 2 DIABETES MELLITUS WITHOUT COMPLICATIONS Status: Chronic Qualifiers: Diabetes mellitus type: type 2 Diabetes mellitus exterminator helper insulin use: with care home use (4) GERD (gastroesophageal reflux disease) Code(s): K21.9 - GASTRO-ESOPHAGEAL REFLUX DISEASE WITHOUT ESOPHAGITIS Status: Chronic (5) Hyperlipemia Code(s): E78.5 - HYPERLIPIDEMIA, UNSPECIFIED Status: Chronic (6) Hypertension Code(s): I10 - ESSENTIAL (PRIMARY) HYPERTENSION Status: Chronic - Plan Plan: 69 yo male with h/o HTN, CHF, GED, DMII presents for abd pain found to have SBO now POD #1 lap small bowel resection #Small bowel obstruction, s/p lap small bowel resection POD#2 - Presented with pain, n/v. CT dissection demonstrated partial SBO - Small bowel follow through stopped during study 2/2 pain from gastrografin, no passed of contrast into colon @ 1.5hr - Surg, Dr. Fried, consulted from ED, pt taken to OR for laparoscopic small bowel resection on 05/15, apprec recs and assistance - Cont NPO, NG tube in place draining ~3 L - Dias in place, 1.1 L total output since admission, straw-colored urine - Anesthesia consulted for pain control with EARLY MORNING - Zofran and promethazine for nausea prn - Abdomen tender but no distention and positive bowel sounds; no flatus or BM at this time - Advance diet per surgery #ERVIN, resolved - Cr 1.5 -> 1.11 -> 0.75 - Cont LR @ 150cc/hr. Cont to monitor #DMII - 75/25 27u BID at home, will restart at 14u BID and monitor BG to adjust as needed - Hyperglycemic since admission to 300s. On Sliding scale - Accuchecks, hyperglycemic protocol - Holding home metformin #Iron def anemia - Hb 12.2, stable post-op. - Holding home iron 2/2 SE of constipation and while NPO #Hypothyroidism - Cont levothyroxine once able to advance diet #Chronic back pain - Takes norco and methocarbamol at home. Holding. - Cont EARLY MORNING for pain management #HTN - cont home meds at this time, meds with sips #CAD - Th lovenox, holding Xarelto. Reviewing records for indication for anticoagulation. - cont other home meds once tolerating PO #GERD - cont home protonix Code: full Diet: NPO, strict. VTE ppx: Th lovenox IVF: LR @ 125 cc/hr Disposition/LOS: Admitted for SBO. Now POD #1 s/p lap small bowel resection. Tolerated procedure well. Cont bowel rest. Pending surgery recs. Anticipate hospitalization 3-5 days pending clinical course. Addendum - Attending - Attending Attestation Date/Time: 05/17/19 1150 I personally evaluated the patient and discussed the management with Dr. Butler at 0715 am I agree with the History, Examination, Assessment and Plan documented above with any addition or exceptions noted below. pod #2 s/p lysis of adhesions- cont NGT and water/ice sips per surgery. Pain via EARLY MORNING pump. Appreicate anesthesia recs Mildly productive cough- most likely secondary to atelectasis. Continue IS an ambulation. No fever or elevated WBC so doubt pneumonia. If either develop will get CXR. T2DM- continue insulin with SS HTN- uncontrolled. Since tolerating sips of water will restart home meds CAD- asymptomatic at this time. Restart eliquis if tolerating po.
[2019-05-17] MEDS: Carvedilol 6.25 MG TAB PO SCH ×2 (08:01→17:16)
[2019-05-17] MEDS: Sacubitril 49 MG/Valsartan 51 MG TABLET PO SCH ×2 (08:01→22:07)
[2019-05-17] MEDS: Pantoprazole 40 MG VIAL IVP SCH (08:01)
[2019-05-17] MEDS: Docusate Sodium 100 MG/10 ML UDCUP PO SCH ×2 (08:02→22:05)
[2019-05-17] MEDS: Enoxaparin Sodium 100 MG/ML SYRINGE SC SCH ×2 (08:06→22:05)
[2019-05-17] MEDS: HumuLIN 70/30 (300 UNITS/3 ML VIAL) SC SCH ×2 (08:13→22:14)
[2019-05-17] MEDS: guaiFENesin ER 600 MG TAB PO SCH ×2 (08:53→22:06)
--- NOTE | 2019-05-17 09:06 | PRG ---
DATE OF SERVICE: 05/17/2019 SUBJECTIVE: The patient is postop day 1 status post hand assisted lysis of adhesions. He was found to have very dense chronic adhesions primarily in the right upper quadrant. He says he feels a little bit better. He is still having quite a bit of abdominal pain. He denies any flatus. OBJECTIVE: VITAL SIGNS: On examination, his temperature is 98, pulse 66, blood pressure 191/79. His NG tube has put out a liter, but has slowed down significantly. LABORATORY DATA: His white count is 10, H and H 11 and 35, platelet count 176. Electrolytes are fine. ASSESSMENT: Status post extensive lysis of adhesions. PLAN: Discontinue Dias. Ambulate. Job ID: [id number]
--- NOTE | 2019-05-17 09:58 | RAD ---
TWO VIEW ABDOMEN SUPINE AND UPRIGHT VIEWS: FINDINGS: NG tube overlies the region of the gastric antrum. There is contrast opacification of the colon. Th ere is scattered small bowel gas which is nonspecific in appearance. IMPRESSION: There are scattered mildly distended loops of small bowel. There is contrast opacification of the co jamar. POS: [facility]
[2019-05-17] MEDS: fentaNYL Citrate/PF 2,000 MCG in Sodium Chloride 0.9% 60 ML IV PRN (10:20)
[2019-05-17] MEDS: Labetalol HCl 100 MG/20 ML VIAL SLOW IVP PRN (18:37)
[2019-05-18] MEDS: fentaNYL Citrate/PF 2,000 MCG in Sodium Chloride 0.9% 60 ML IV PRN ×2 (00:46→15:14)
[2019-05-18] MEDS: Labetalol HCl 100 MG/20 ML VIAL SLOW IVP PRN ×4 (01:12→16:07)
[2019-05-18] MEDS: Lactated Ringer's 1,000 ML IV SCH ×3 (01:18→16:10)
[2019-05-18] MEDS ORDERED: Amitriptyline HCl 25 MG TAB PER TUBE SCH (02:00)
[2019-05-18] MEDS ORDERED: diphenhydrAMINE 25 MG in Sodium Chloride 0.9% 50 ML IVPB SCH (03:00)
--- NOTE | 2019-05-18 06:20 | PDOC.FM ---
- Subjective Subjective: Pt doing better today. Remains with mild pain in abdomen, productive cough. Did not receive a breathing treatment yesterday. He did have a BM yesterday, passing flatus this am. - Objective Vital Signs & Weight: Vital Signs (12 hours) Temp Pulse Resp BP BP Pulse Ox 05/18/19 04:13 98 F 64 16 165/71 H 96 05/18/19 01:12 67 05/18/19 00:56 98.3 F 67 16 189/92 H 96 05/17/19 20:11 97 05/17/19 19:13 97.9 F 97 16 158/75 H 60 L 05/17/19 18:52 60 144/75 H 05/17/19 18:37 60 172/72 H Weight Weight 104.865 kg I&O: 05/16/19 05/17/19 05/18/19 06:59 06:59 06:59 Intake Total 1750 4220 2900 Output Total 2750 2625 2020 Balance -1000 1595 880 Result Diagrams: 05/18/19 06:42 05/18/19 06:42 Phys Exam - Physical Examination Constitutional: NAD HEENT: PERRLA Respiratory: no rales, no rhonchi Mild expiratory wheeze; cough Cardiovascular: RRR, no significant murmur Gastrointestinal: soft, non-tender, positive bowel sounds Incisions healing well, very little erythema at umblical incision Musculoskeletal: no edema, pulses present Dx/Plan (1) Partial small bowel obstruction Status: Acute (2) CAD (coronary artery disease) Code(s): I25.10 - ATHSCL HEART DISEASE OF [place] CORONARY ARTERY W/O ANG PCTRS Status: Acute (3) Diabetes mellitus Code(s): E11.9 - TYPE 2 DIABETES MELLITUS WITHOUT COMPLICATIONS Status: Chronic Qualifiers: Diabetes mellitus type: type 2 Diabetes mellitus chcf insulin use: with termite control servicer use (4) GERD (gastroesophageal reflux disease) Code(s): K21.9 - GASTRO-ESOPHAGEAL REFLUX DISEASE WITHOUT ESOPHAGITIS Status: Chronic (5) Hyperlipemia Code(s): E78.5 - HYPERLIPIDEMIA, UNSPECIFIED Status: Chronic (6) Hypertension Code(s): I10 - ESSENTIAL (PRIMARY) HYPERTENSION Status: Chronic - Plan Plan: 69 yo male with h/o HTN, CHF, GED, DMII presents for abd pain found to have SBO now POD #3 lap small bowel resection #Small bowel obstruction, s/p lap small bowel resection POD#3 - Presented with pain, n/v. CT dissection demonstrated partial SBO - Small bowel follow through stopped during study 2/2 pain from gastrografin, no passed of contrast into colon @ 1.5hr - Surg, Dr. Fried, consulted from ED, pt taken to OR for laparoscopic small bowel resection on 05/15, apprec recs and assistance - Cont NPO, NG tube in place draining ~3.5 L - Dias in place, straw-colored urine - Anesthesia consulted for pain control with PRINCIPAL ARCHAEOLOGIST - Zofran and promethazine for nausea prn - Abdomen less tender this am, had a BM yesterday, passing flatus. - Advance diet per surgery #ERVIN, resolved - Cr 1.5 -> 1.11 -> 0.75 - Cont LR @ 150cc/hr. Cont to monitor #DMII - 75/25 27u BID at home, will restart at 14u BID and monitor BG to adjust as needed although held yesterday due to low BG and this am are ~120's. - Hyperglycemic since admission to 300s. On Sliding scale - Accuchecks, hyperglycemic protocol - Holding home metformin #Iron def anemia - Hb 12.2, stable post-op. - Holding home iron 2/2 SE of constipation and while NPO #Hypothyroidism - Cont levothyroxine once able to advance diet #Chronic back pain - Takes norco and methocarbamol at home. Holding. - Cont PRINCIPAL ARCHAEOLOGIST for pain management #HTN - cont home meds at this time, meds with sips #CAD - Th lovenox, holding Xarelto. Reviewing records for indication for anticoagulation. - cont other home meds once tolerating PO #GERD - cont home protonix Code: full Diet: NPO, strict. VTE ppx: Th lovenox IVF: LR @ 120 cc/hr Disposition/LOS: Admitted for SBO. Now POD #3 s/p lap small bowel resection. Tolerated procedure well. Cont bowel rest. Pending surgery recs. Anticipate hospitalization 3-5 days pending clinical course. Addendum - Attending - Attending Attestation Date/Time: 05/18/19 0700 I personally evaluated the patient at 11 am and discussed the management with Dr. Butler I agree with the History, Examination, Assessment and Plan documented above with any addition or exceptions noted below. Advance diet and remove ngt per surg. Pain improved with PRINCIPAL ARCHAEOLOGIST HTN- increase coreg dose T2DM- switch to NPH and SSI until tolerating regular diet
[2019-05-18 06:57] LABS: #Basophils 0.1 thou/uL (0.0-0.2); #Eosinphils 0.2 thou/uL (0.0-0.7); #Lymphocytes 1.5 thou/uL (1.20-3.40); #Monocytes 0.4 thou/uL (0.11-0.59); #Neutrophils 6.6 thou/uL (1.40-6.50); %Basophils 0.7 % (0.0-1.0); %Eosinophils 2.3 % (0.0-10.0); %Lymphocytes 16.7 % (21.0-51.0); %Neutrophils 75.4 % (42.0-75.0); Hemoglobin 11.5 g/dL (14.0-18.0); Mean Corpuscular HGB CONC 32.3 g/dL (32.0-36.0); Mean Corpuscular Hemoglobin 31.1 pg (27.0-31.0); Mean Corpuscular Volume 96.1 fL (78.0-98.0); Mean Platelet Volume 7.4 fL (7.4-10.4); Platelet Count 181 thou/uL (130-400); RBC Distribution Width 12.2 % (11.5-14.5); Red Blood Cell (RBC) Count 3.69 mill/uL (4.70-6.10); White Blood Cell (WBC) Count 8.8 thou/uL (4.8-10.8)
[2019-05-18 07:17] LABS: Anion Gap 13 mmol/L (10-20); BUN (Urea Nitrogen) 10 mg/dL (8.4-25.7); Calc. Creatinine Clearance 144 mL/min (70-130); Calcium 8.3 mg/dL (7.8-10.44); Carbon Dioxide 27 mmol/L (23-31); Chloride 100 mmol/L (98-107); Estimated GFR-MDRD Greater than 90; Glucose 117 mg/dL (80-115); Potassium 3.6 mmol/L (3.5-5.1); Sodium 136 mmol/L (136-145)
[2019-05-18] MEDS: Carvedilol 6.25 MG TAB PO SCH ×2 (07:54→16:10)
[2019-05-18] MEDS: Sacubitril 49 MG/Valsartan 51 MG TABLET PO SCH ×2 (07:54→19:59)
[2019-05-18] MEDS: guaiFENesin ER 600 MG TAB PO SCH ×2 (07:54→20:00)
[2019-05-18] MEDS: Enoxaparin Sodium 100 MG/ML SYRINGE SC SCH (07:55)
[2019-05-18] MEDS: Pantoprazole 40 MG VIAL IVP SCH (07:55)
[2019-05-18] MEDS: Docusate Sodium 100 MG/10 ML UDCUP PO SCH ×2 (07:55→20:00)
[2019-05-18] MEDS: HumuLIN 70/30 (300 UNITS/3 ML VIAL) SC SCH (07:56)
[2019-05-18] MEDS: Cepastat Lozenges 1 LOZ PO PRN ×2 (09:38→09:40)
--- NOTE | 2019-05-18 11:48 | PRG ---
DATE OF SERVICE: 05/18/2019 SUBJECTIVE: The patient is feeling better. His pain is improving. No nausea or vomiting. He had a bowel movement. OBJECTIVE: VITAL SIGNS: On examination, temperature is 98, pulse 97, and blood pressure 172/75. GENERAL: He is awake, alert. NG tube put out less at 400 for 24 hours. Urine output is okay. ASSESSMENT: Small bowel obstruction, resolving. PLAN: Discontinue NG. Start clear liquids. Job ID: [id number]
[2019-05-18] MEDS: HumaLOG 300 UNITS/3 ML VIAL SC PRN (17:24)
[2019-05-18] MEDS: Amitriptyline HCl 25 MG TAB PER TUBE SCH (19:59)
[2019-05-18] MEDS: Rivaroxaban 2.5 MG TAB PO SCH (19:59)
[2019-05-18] MEDS: NPH, Human Insulin Isophane 300 UNIT/3 ML VIAL SC SCH (20:10)
[2019-05-19] MEDS: Lactated Ringer's 1,000 ML IV SCH ×3 (02:18→20:19)
[2019-05-19 05:24] LABS: #Basophils 0.1 thou/uL (0.0-0.2); #Eosinphils 0.3 thou/uL (0.0-0.7); #Lymphocytes 1.3 thou/uL (1.20-3.40); #Monocytes 0.4 thou/uL (0.11-0.59); #Neutrophils 4.5 thou/uL (1.40-6.50); %Basophils 1.1 % (0.0-1.0); %Eosinophils 4.3 % (0.0-10.0); %Lymphocytes 20.1 % (21.0-51.0); %Monocytes 6.5 % (0.0-10.0); Hemoglobin 12.2 g/dL (14.0-18.0); Mean Corpuscular HGB CONC 31.6 g/dL (32.0-36.0); Mean Corpuscular Hemoglobin 30.2 pg (27.0-31.0); Mean Corpuscular Volume 95.7 fL (78.0-98.0); Mean Platelet Volume 7.5 fL (7.4-10.4); Platelet Count 204 thou/uL (130-400); Red Blood Cell (RBC) Count 4.03 mill/uL (4.70-6.10); White Blood Cell (WBC) Count 6.7 thou/uL (4.8-10.8)
[2019-05-19 05:46] LABS: Anion Gap 10 mmol/L (10-20); BUN (Urea Nitrogen) 8 mg/dL (8.4-25.7); Calc. Creatinine Clearance 131 mL/min (70-130); Calcium 8.7 mg/dL (7.8-10.44); Carbon Dioxide 32 mmol/L (23-31); Chloride 99 mmol/L (98-107); Estimated GFR-MDRD Greater than 90; Glucose 118 mg/dL (80-115); Potassium 3.7 mmol/L (3.5-5.1); Sodium 137 mmol/L (136-145)
--- NOTE | 2019-05-19 05:59 | PDOC.FM ---
- Subjective Subjective: Patient was resting comfortable in his hospital bed at the time of evaluation. He denied any acute overnight events such as chest pain, SOB, ABD pain or N/V. He stated that he had a bowel movement earlier in the morning and the he was eager to advance his diet. - Objective Vital Signs & Weight: Vital Signs (12 hours) Temp Pulse Resp BP Pulse Ox 05/19/19 04:07 97.8 F 59 L 16 92 L 05/19/19 02:03 139/72 05/18/19 23:52 97.9 F 60 16 176/77 H 96 05/18/19 19:29 98.3 F 70 16 158/67 H 94 L 05/18/19 19:00 160/76 H Weight Weight 103.827 kg I&O: 05/17/19 05/18/19 05/19/19 06:59 06:59 06:59 Intake Total 4220 2900 4620 Output Total 2625 2020 150 Balance 0165 598 0481 Result Diagrams: 05/19/19 05:14 05/19/19 05:14 Phys Exam - Physical Examination Constitutional: NAD HEENT: moist MMs, oral pharynx no lesions Neck: supple, full ROM Respiratory: no wheezing, no rales, no rhonchi, clear to auscultation bilateral Cardiovascular: RRR, no significant murmur, no rub Gastrointestinal: soft, no distention, positive bowel sounds Post-Op changes noted w/o erythema or drainage, minimal TTP noted. Musculoskeletal: no edema, pulses present Neurological: non-focal, moves all 4 limbs Psychiatric: normal affect, A&O x 3 Skin: no rash Dx/Plan - Plan Plan: Patient is a 69 y/o male with PMH of HTN, CHF, GED, DMII presents for ABD Pain, found to have SBO treated operatively via Small Bowel Resection. #Small bowel obstruction, s/p lap small bowel resection POD#4 - Presented with pain, n/v. CT dissection demonstrated partial SBO - Small bowel follow through stopped during study 2/2 pain from gastrografin, no passed of contrast into colon @ 1.5hr - Surg, Dr. Fried, consulted from ED, pt taken to OR for laparoscopic small bowel resection on 05/15, apprec recs and assistance - NG Tube: Drained 150 ml overnight - DC'd - Diet: Clear Liquids, will plan to advanced based on Surgery recs - Anesthesia consulted for pain control with [employer] VINER MECHANIC - Zofran and promethazine for nausea prn - Abdomen less tender this am, had a BM yesterday and today, passing flatus. #ERVIN, resolved - Cr 1.5 -> 1.11 -> 0.75 > 0.78 - Cont LR @ 150cc/hr. Cont to monitor #DMII - 75/25 27u BID at home, currently on NPH 10U BID - Multiple episodes of hyperglycemic since admission in 300s - 122 this AM - Moderate SSI - Accuchecks, hyperglycemic protocol - Holding home Metformin - will plan to restart following diet advancement #Iron def anemia - Hb 12.2, stable post-op. - Holding home iron 2/2 SE of constipation #Hypothyroidism - Cont levothyroxine once able to advance diet #Chronic back pain - Takes norco and methocarbamol at home. Holding. - Cont PE[employer] VINER MECHANIC for pain management #HTN - cont home meds at this time, meds with sips #CAD - Th lovenox, holding Xarelto. Reviewing records for indication for anticoagulation. - cont other home meds once tolerating PO #GERD - cont home protonix Code: Full Diet: Clear Liquids VTE ppx: SCDs, Lovenox IVF: LR @ 120 cc/hr Dispo: Patient is currently stable on the Surgical Floor, post-op Day 4 s/p Lap Small Bowel Resection. Will advance diet as per Surgery recs. Expected LOS > 48H. Addendum - Attending - Attending Attestation Date/Time: 05/19/19 1650 I personally evaluated the patient and discussed the management with Dr. Brenner. I agree with the History, Examination, Assessment and Plan documented above with any addition or exceptions noted below. Pt was up walking in the halls with PT. Pain is controlled. When diet is advanced, will change back to 70/30 insulin.
[2019-05-19] MEDS: Labetalol HCl 100 MG/20 ML VIAL SLOW IVP PRN (07:47)
[2019-05-19] MEDS: NPH, Human Insulin Isophane 300 UNIT/3 ML VIAL SC SCH ×2 (07:54→21:06)
[2019-05-19] MEDS: Docusate Sodium 100 MG/10 ML UDCUP PO SCH ×2 (07:54→21:06)
[2019-05-19] MEDS: Sacubitril 49 MG/Valsartan 51 MG TABLET PO SCH ×2 (07:55→21:04)
[2019-05-19] MEDS: Carvedilol 6.25 MG TAB PO SCH ×2 (07:56→16:52)
[2019-05-19] MEDS: guaiFENesin ER 600 MG TAB PO SCH ×2 (07:56→20:20)
[2019-05-19] MEDS: Rivaroxaban 2.5 MG TAB PO SCH ×2 (07:57→21:04)
[2019-05-19] MEDS: Pantoprazole 40 MG VIAL IVP SCH (07:57)
[2019-05-19] MEDS ORDERED: DC PCA Order Set 1 EACH FS ONE (11:58)
--- NOTE | 2019-05-19 12:08 | PRG ---
DATE OF SERVICE: 05/19/2019 SUBJECTIVE: The patient is doing well. His pain is controlled. He has no nausea. He is having bowel movements. He is tolerating clear liquids. OBJECTIVE: VITAL SIGNS: On examination, his temperature is 97.8, pulse 59, blood pressure 173/76. GENERAL: He looks good. ABDOMEN: Soft, a little bit postop tender. ASSESSMENT: Doing well. PLAN: Advance diet, saline lock IV., p.o. pain medications, and home soon. Job ID: [id number]
[2019-05-19] MEDS: HYDROcodone/Acetaminophen 10/325 mg Tablet PO PRN ×2 (15:38→20:20)
[2019-05-19] MEDS: Amitriptyline HCl 25 MG TAB PER TUBE SCH (20:20)
[2019-05-20] MEDS: HYDROcodone/Acetaminophen 10/325 mg Tablet PO PRN ×3 (04:00→21:36)
[2019-05-20] MEDS: Lactated Ringer's 1,000 ML IV SCH ×3 (04:10→22:15)
[2019-05-20 05:39] LABS: #Basophils 0.1 thou/uL (0.0-0.2); #Eosinphils 0.4 thou/uL (0.0-0.7); #Lymphocytes 1.3 thou/uL (1.20-3.40); #Monocytes 0.6 thou/uL (0.11-0.59); #Neutrophils 4.3 thou/uL (1.40-6.50); %Basophils 0.8 % (0.0-1.0); %Eosinophils 5.4 % (0.0-10.0); %Lymphocytes 19.4 % (21.0-51.0); %Monocytes 9.7 % (0.0-10.0); %Neutrophils 64.8 % (42.0-75.0); Hemoglobin 11.7 g/dL (14.0-18.0); Mean Corpuscular HGB CONC 32.5 g/dL (32.0-36.0); Mean Corpuscular Hemoglobin 30.8 pg (27.0-31.0); Mean Corpuscular Volume 94.8 fL (78.0-98.0); Mean Platelet Volume 7.7 fL (7.4-10.4); Platelet Count 207 thou/uL (130-400); RBC Distribution Width 11.9 % (11.5-14.5); Red Blood Cell (RBC) Count 3.81 mill/uL (4.70-6.10); White Blood Cell (WBC) Count 6.6 thou/uL (4.8-10.8)
[2019-05-20 06:02] LABS: Anion Gap 8 mmol/L (10-20); BUN (Urea Nitrogen) 7 mg/dL (8.4-25.7); Calc. Creatinine Clearance 121 mL/min (70-130); Calcium 8.4 mg/dL (7.8-10.44); Carbon Dioxide 33 mmol/L (23-31); Chloride 100 mmol/L (98-107); Estimated GFR-MDRD Greater than 90; Glucose 106 mg/dL (80-115); Sodium 138 mmol/L (136-145)
--- NOTE | 2019-05-20 06:28 | PDOC.FM ---
- Subjective Subjective: Patient was sitting up in bed, finishing his breakfast. He denied any acute overnight events with the exception of mild ABD tenderness, and stated that he had been able ambulate and pass stool without difficulty. He stated that he was eager to be DC'd. - Objective Vital Signs & Weight: Vital Signs (12 hours) Temp Pulse Resp BP Pulse Ox 05/20/19 04:00 97.5 F L 61 18 159/72 H 94 L 05/20/19 00:31 98.1 F 60 18 127/75 94 L 05/19/19 20:41 97.9 F 62 18 152/85 H 94 L 05/19/19 20:00 94 L Weight Admit Weight 99.79 kg Weight 102.058 kg I&O: 05/18/19 05/19/19 05/20/19 06:59 06:59 06:59 Intake Total 2900 6540 1305 Output Total 2019 1225 1150 Balance 880 5315 155 Result Diagrams: 05/20/19 05:06 05/20/19 05:06 Phys Exam - Physical Examination Constitutional: NAD HEENT: PERRLA, moist MMs, sclera anicteric, oral pharynx no lesions Neck: no nodes, supple, full ROM Respiratory: no wheezing, no rales, no rhonchi, clear to auscultation bilateral Cardiovascular: RRR, no significant murmur, no rub Gastrointestinal: soft, no distention, positive bowel sounds Mild TTP at the periumbilical area. Musculoskeletal: no edema, pulses present Neurological: non-focal, moves all 4 limbs Psychiatric: normal affect, A&O x 3 Skin: no rash Dx/Plan - Plan Plan: Patient is a 69 y/o male with PMH of HTN, CHF, GED, DM2 who presented initially with ABD Pain, found to have SBO treated operatively via Small Bowel Resection. #SBO, s/p Lap Small Bowel Resection POD#5 - Presented with ABD Pain, N/V - CT Dissection: Partial SBO - Small Bowel Follow-Through stopped during study 2/2 pain from Gastrografin, no passage of contrast into Colon @ 1.5H - Dr. Fried (Gen Surg): Consulted in ED, performed resection on 05/15/2019 - NG Tube: DC'd - Diet: Clear Liquids, will plan to advanced based on Surgery recs - Anesthesia consulted for pain control with SUPERVISOR PASTRY - Zofran and Promethazine for Nausea PRN - Patient states that ABD is less tender, continues to pass flatus, stool #ERVIN, resolved - 0.83 on 05/20/2019 #DM2 - Patient states that he takes 75/25 27U BID at home, currently on NPH 10U BID - Multiple episodes of hyperglycemic since admission in 300s - 96 this AM - Moderate SSI - Accuchecks - Hyperglycemic protocol - Holding home Metformin - will plan to restart as diet progresses #Iron def anemia - H.7 - stable - Holding home Iron 2/2 Constipation #Hypothyroidism - Will plan to restart Levothyroxine once able to advance diet #Chronic Back Pain - Takes [place] and Methocarbamol at home - currently holding - Continue SUPERVISOR PASTRY for pain management #HTN - Continue home medication regimen #CAD - Continue home medication regimen #GERD - Continue home Protonix regimen Code: Full Diet: Clear Liquids - advancing per Gen Surg recs VTE PPx: SCDs and Home Xarelto Activity: Ambulate w/ Assist Dispo: Patient is currently stable on the Surgical Floor, post-op Day 5 s/p Lap Small Bowel Resection. Will advance diet as per Surgery recs. Expected LOS > 48H. Addendum - Attending - Attending Attestation Date/Time: 05/20/19 5938 I personally evaluated the patient and discussed the management with Dr. Brenner. I agree with the History, Examination, Assessment and Plan documented above with any addition or exceptions noted below. Patient tolerated liquids this morning. Will see surgery recs for advancing diet. Likely swap to 70/30 insulin tomorrow if he is able to eat regular diet.
[2019-05-20] MEDS: guaiFENesin ER 600 MG TAB PO SCH ×2 (08:04→21:30)
[2019-05-20] MEDS: Potassium Chloride 20 MEQ TAB PO SCH ×2 (08:04→17:02)
[2019-05-20] MEDS: Rivaroxaban 2.5 MG TAB PO SCH ×2 (08:05→21:30)
[2019-05-20] MEDS: Sacubitril 49 MG/Valsartan 51 MG TABLET PO SCH ×2 (08:05→21:30)
[2019-05-20] MEDS: Docusate Sodium 100 MG/10 ML UDCUP PO SCH ×2 (08:05→21:31)
[2019-05-20] MEDS: Carvedilol 6.25 MG TAB PO SCH ×2 (08:05→17:01)
[2019-05-20] MEDS: Pantoprazole 40 MG VIAL IVP SCH (08:06)
[2019-05-20] MEDS: NPH, Human Insulin Isophane 300 UNIT/3 ML VIAL SC SCH ×2 (08:06→21:32)
[2019-05-20] MEDS: HumaLOG 300 UNITS/3 ML VIAL SC PRN (10:57)
--- NOTE | 2019-05-20 15:00 | PDOC.GSPN ---
Surgery Progress Note: Subj - Subjective Narrative: Feels fine. Pain controlled. Passing gas, having normal bowel movements, no nausea or vomiting. Abdomen soft, nondistended, incisions healing with bruising below umbilicus but no hematoma or erythema. A/P) Doing well s/p extensive CLEMENCIA. Ileus resolving. Advance to soft diet. OK to discharge from surgical standpoint. Follow up with me in 2 weeks Surgery Progress Note: Obj - Vital signs Vital signs: Vital Signs - Most Recent Temp Pulse Resp BP Pulse Ox 97.2 F L 60 16 124/76 97 05/20/19 11:00 05/20/19 11:00 05/20/19 11:00 05/20/19 11:00 05/20/19 11:00 Surgery Progress Note: Results - Labs Result Diagrams: 05/20/19 05:06 05/20/19 05:06 Lab results: Laboratory Results - last 24 hr 05/20/19 05/20/19 05/20/19 05:06 05:06 05:15 WBC 6.6 RBC 3.81 L Hgb 11.7 L Hct 36.1 L MCV 94.8 MCH 30.8 MCHC 32.5 RDW 11.9 Plt Count 207 MPV 7.7 Neutrophils % 64.8 Lymphocytes % 19.4 L Monocytes % 9.7 Eosinophils % 5.4 Basophils % 0.8 Neutrophils # 4.3 Lymphocytes # 1.3 Monocytes # 0.6 H Eosinophils # 0.4 Basophils # 0.1 Sodium 138 Potassium 3.0 L Chloride 100 Carbon Dioxide 33 H Anion Gap 8 L BUN 7 L Creatinine 0.83 Estimated GFR (MDRD) Greater than 90 Glucose 106 POC Glucose 96 Calcium 8.4 Magnesium TSH 3rd Generation 05/20/19 05/20/19 05/20/19 10:44 11:52 11:52 WBC RBC Hgb Hct MCV MCH MCHC RDW Plt Count MPV Neutrophils % Lymphocytes % Monocytes % Eosinophils % Basophils % Neutrophils # Lymphocytes # Monocytes # Eosinophils # Basophils # Sodium Potassium Chloride Carbon Dioxide Anion Gap BUN Creatinine Estimated GFR (MDRD) Glucose POC Glucose 185 H Calcium Magnesium 1.7 TSH 3rd Generation 2.1045 - Radiology Interpretation CT scan - abdomen Status: image reviewed by me, pending Abdominal x-ray Status: image reviewed by me, pending
[2019-05-20] MEDS: Amitriptyline HCl 25 MG TAB PER TUBE SCH (21:30)
[2019-05-21] MEDS: HYDROcodone/Acetaminophen 10/325 mg Tablet PO PRN ×2 (03:14→09:37)
[2019-05-21] MEDS: Lactated Ringer's 1,000 ML IV SCH ×2 (04:56→09:32)
[2019-05-21 05:44] LABS: #Basophils 0.1 thou/uL (0.0-0.2); #Eosinphils 0.4 thou/uL (0.0-0.7); #Lymphocytes 1.3 thou/uL (1.20-3.40); #Monocytes 0.6 thou/uL (0.11-0.59); %Basophils 0.9 % (0.0-1.0); %Eosinophils 6.1 % (0.0-10.0); %Lymphocytes 20.9 % (21.0-51.0); %Monocytes 9.6 % (0.0-10.0); %Neutrophils 62.5 % (42.0-75.0); Hemoglobin 11.3 g/dL (14.0-18.0); Mean Corpuscular HGB CONC 32.1 g/dL (32.0-36.0); Mean Corpuscular Hemoglobin 30.6 pg (27.0-31.0); Mean Corpuscular Volume 95.2 fL (78.0-98.0); Mean Platelet Volume 7.7 fL (7.4-10.4); Platelet Count 206 thou/uL (130-400); RBC Distribution Width 12.2 % (11.5-14.5); Red Blood Cell (RBC) Count 3.69 mill/uL (4.70-6.10); White Blood Cell (WBC) Count 6.4 thou/uL (4.8-10.8)
[2019-05-21 05:59] LABS: Anion Gap 11 mmol/L (10-20); BUN (Urea Nitrogen) 7 mg/dL (8.4-25.7); Calc. Creatinine Clearance 133 mL/min (70-130); Calcium 8.1 mg/dL (7.8-10.44); Carbon Dioxide 26 mmol/L (23-31); Chloride 105 mmol/L (98-107); Estimated GFR-MDRD Greater than 90; Glucose 121 mg/dL (80-115); Potassium 3.5 mmol/L (3.5-5.1); Sodium 138 mmol/L (136-145)
--- NOTE | 2019-05-21 05:59 | PDOC.FM ---
- Subjective Subjective: Patient was sitting in his chair at the time of evaluation, having just finished his breakfast and a short walk around the Surgical Floor. He denied any acute overnight events such as ABD pain, N/V, SOB or chest pain. He expressed continued desire to be DC'd. - Objective Vital Signs & Weight: Vital Signs (12 hours) Temp Pulse Resp BP BP Pulse Ox 05/21/19 04:15 97.4 F L 60 16 157/69 H 95 05/20/19 23:58 97.5 F L 59 L 18 135/78 96 05/20/19 21:18 98.6 F 61 16 144/81 H 95 05/20/19 20:00 95 Weight Admit Weight 99.79 kg Weight 100.811 kg I&O: 05/19/19 05/20/19 05/21/19 06:59 06:59 06:59 Intake Total 6540 1305 930 Output Total 1225 1150 Balance 5315 155 930 Result Diagrams: 05/21/19 04:54 05/21/19 04:54 Phys Exam - Physical Examination Constitutional: NAD HEENT: PERRLA, moist MMs, sclera anicteric, oral pharynx no lesions Neck: supple, full ROM Respiratory: no wheezing, no rales, no rhonchi, clear to auscultation bilateral Cardiovascular: RRR, no significant murmur, no rub Gastrointestinal: soft, non-tender, no distention, positive bowel sounds Periumbilical bruising with decreased induration from previous evaluation. Musculoskeletal: no edema, pulses present Neurological: non-focal, moves all 4 limbs Psychiatric: normal affect, A&O x 3 Skin: no rash Dx/Plan - Plan Plan: Patient is a 69 y/o male with PMH of HTN, CHF, GED, DM2 who presented initially with ABD Pain, found to have SBO treated operatively via Small Bowel Resection. #SBO, s/p Lap Small Bowel Resection POD#6 - Presented with ABD Pain, N/V - CT Dissection: Partial SBO - Small Bowel Follow-Through stopped during study 2/2 pain from Gastrografin, no passage of contrast into Colon @ 1.5H - Dr. Fried (Gen Surg): Consulted in ED, performed resection on 05/15/2019 - NG Tube: DC'd - Diet: Soft, per Surgery recs - Anesthesia consulted for pain control with [employer] REPAIRER - Zofran and Promethazine for Nausea PRN - Patient states that ABD is less tender, continues to pass flatus, stool #ERVIN, resolved - 0.83 on 05/20/2019 #DM2 - Patient states that he takes 75/25 27U BID at home, currently on NPH 10U BID - Multiple episodes of hyperglycemic since admission in 300s - 146 most recently - Moderate SSI - Accuchecks - Hyperglycemic protocol - Holding home Metformin - will plan to restart as diet progresses #Iron def anemia - H.7 - stable - Holding home Iron 2/2 Constipation #Hypothyroidism - Will plan to restart Levothyroxine upon DC #Chronic Back Pain - Takes [employer] and Methocarbamol at home #HTN - Continue home medication regimen #CAD - Continue home medication regimen #GERD - Continue home Protonix regimen Code: Full Diet: Soft VTE PPx: SCDs and Home Xarelto Activity: Ambulate w/ Assist Dispo: Patient is currently stable on the Surgical Floor, post-op Day 6 s/p Lap Small Bowel Resection. Will advance diet as per Surgery recs and plan for DC. Expected LOS < 24H. Addendum - Attending - Attending Attestation Date/Time: 05/21/192099 I personally evaluated the patient and discussed the management with Dr. Brenner. I agree with the History, Examination, Assessment and Plan documented above with any addition or exceptions noted below. The patient has been cleared for discharge by surgery. Will d/c home. Tolerated breakfast.
[2019-05-21 07:37] VITALS: TEMP 98.1
[2019-05-21] MEDS: Docusate Sodium 100 MG/10 ML UDCUP PO SCH (09:28)
[2019-05-21] MEDS: guaiFENesin ER 600 MG TAB PO SCH (09:28)
[2019-05-21] MEDS: Sacubitril 49 MG/Valsartan 51 MG TABLET PO SCH (09:28)
[2019-05-21] MEDS: Rivaroxaban 2.5 MG TAB PO SCH (09:28)
[2019-05-21] MEDS: Pantoprazole 40 MG VIAL IVP SCH (09:28)
[2019-05-21] MEDS: NPH, Human Insulin Isophane 300 UNIT/3 ML VIAL SC SCH (09:30)
[2019-05-21] MEDS: Carvedilol 6.25 MG TAB PO SCH (09:37)
[2019-05-21 10:34] VITALS: BMI 35.9
[2019-05-21 11:15] VITALS: BP 119/68
[2019-05-21] MEDS: Prevnar 13-Val Conj/PF 0.5 ML SYRINGE IM ONE ×2 (13:05→14:49)
[2019-05-21] MEDS: HumaLOG 300 UNITS/3 ML VIAL SC PRN (13:14)
--- NOTE | 2019-05-22 06:30 | DIS ---
DATE OF ADMISSION: 05/15/2019 DATE OF DISCHARGE: 05/21/2019 RESIDENT: Ozzy Brenner MD ADMITTING ATTENDING: Bryon Eastman MD DISCHARGE ATTENDING: Elva Choe MD CONSULTS: Dr. Ki Fried, General Surgery; Dr. Levi Armstrong, General Surgery. PROCEDURES: CT aortic dissection protocol demonstrating possible early partial small bowel obstruction with transition point to the right of midline, representing a possible adhesion without bowel inflammation and an appendix that was not visualized. Incidental reticular nodule consolidations in both lung basurto related to atypical pneumonia. Small left adrenal nodule representing an adenoma without other acute changes identified. Chest x-ray demonstrating normal heart size that was stable with dual lead pacemaker device noted in place. Mild vascular engorgement with mild interstitial prominence. No focal infiltrate or evidence of significant effusion. Abdominal x-ray noting an NG tube that appeared to pass to the EG junction with the tip overlying the epigastric region that would be located in the epigastric fundus just beyond the EG junction. Further advancement into the antral region was suggested. X-ray small bowel with a hospice/home health aide KUB showing gas and stool throughout the small bowel and colon. After hospice/home health aide image, nasogastric tube was advanced approximately 10 cm for better positioning. Oral contrast was administered showing opacifications of nondilated small bowel loops with a small hiatal hernia noted. Image was carried out to 1.5 hours of mildly distended small bowel loops seen throughout the abdomen. The colon was not readily opacified. At the request of Dr. Fried, the exam was terminated due to the patient's pain and nasogastric suction was restored. PRIMARY DIAGNOSIS: Small-bowel obstruction. SECONDARY DIAGNOSES: Acute kidney injury, diabetes type 2, iron deficiency anemia, hypothyroidism, chronic back pain, hypertension, coronary artery disease, and gastroesophageal reflux disease. DISCHARGE MEDICATIONS: None. DISCONTINUED MEDICATIONS: 1. Hydrocodone 10/325 two tabs p.o. q.4 hours p.r.n. 2. DuoNeb 3 mL nebulized q.4 hours. 3. Elavil 50 mg. 4. Carvedilol 12.5 mg p.o. b.i.d. 5. Colace 100 mg p.o. b.i.d. 6. Mucinex 600 mg p.o. q.12 hours. 7. Insulin human lispro moderate sliding scale. 8. Insulin human lispro bedtime sliding scale. 9. Insulin human NPH 10 units scheduled b.i.d. 10. Labetalol 20 mg slow IVP q.4 hours if systolic blood pressure was greater than 160. 11. Protonix 40 mg IV daily. 12. Phenol (Chloraseptic) spray 1 mL p.o. b.i.d. 13. Xarelto 2.5 mg p.o. b.i.d. 14. Entresto one tab p.o. b.i.d. 15. Cepastat throat lozenges p.o. q.2 hours p.r.n. HISTORY OF PRESENT ILLNESS AND HOSPITAL COURSE: The patient is a 69-year-old male, presents to the ED for abdominal pain, which started last night after eating dinner. He stated that he ate a normal dinner and then experienced acute onset of sharp abdominal pain diffusely. He felt nauseous and vomited a little bit, two bowel movements with subjective fevers and sweats. This has never happened before. He denies chest pain at this time. He also had some shortness of breath and could not take a deep breath due to pain. In the ED, he subsequently received 2 L normal saline and morphine. Surgery was consulted and after the imaging results mentioned elsewhere in this document, the decision was made to proceed with a laparoscopic small bowel resection due to small bowel obstruction. The patient was subsequently transferred to the surgical floor, where an NG tube was placed. He was kept n.p.o., eventually was able to pass flatus and stool, and his diet was advanced to clear liquids, liquid diet and then soft diet, which he tolerated well. He was able to ambulate without assistance prior to discharge, and physical exam showed resolving abdominal bruising without severe tenderness to palpation or any notable induration. Prior to discharge, his vital signs were recorded as temperature 98.1, pulse 60, respirations 16 per minute, O2 saturations 96% on room air, blood pressure 119/68. White blood cells 6.4, hemoglobin 11.3, hematocrit 35.1, platelet count 206. Coagulation panel; PT 13.5, INR 1, and APTT 29.6. Chem panel revealed a sodium of 138, potassium 3.5, chloride 105, carbon dioxide 26, BUN 7, creatinine 0.75, glucose 121, calcium 8.1, magnesium 1.7, and TSH 2.1045. DISPOSITION: Stable. DISCHARGE INSTRUCTIONS: 1. Location: Home. 2. Diet: Per surgery recs, the patient was advised to stay on a soft diet and advance as tolerated. 3. Activity: Activity as tolerated. 4. Followup: The patient was advised to follow up with Dr. Ki Fried, General Surgery in 14 days, discuss most recent hospitalization and evaluate surgical postop site. Additionally, the patient was encouraged to follow up with his primary care provider in 2 to 3 weeks in order to discuss his most recent hospitalization and continue to optimize his medication regimen. Job ID: [id number]
== END 2019-05-21 14:52 | disposition home health service (06) | DRG 336 ==
LOC: ERS 03:30 → SJJU 08:07
PROVIDERS: ADMIT Family Medicine; ATTEND Family Medicine
PROC: 0DNU0ZZ Release Omentum, Open Approach (ICD-10-PCS; principal; 2019-05-15)
PROC: 0DNW0ZZ Release Peritoneum, Open Approach (ICD-10-PCS; 2019-05-15)
PROC: 3E0M05Z Introduction of Adhesion Barrier into Peritoneal Cavity, Open Approach (ICD-10-PCS; 2019-05-15)
DX: K56.51 Intestinal adhesions [bands], with partial obstruction (principal); N17.9 Acute kidney failure, unspecified; I50.22 Chronic systolic (congestive) heart failure; D50.9 Iron deficiency anemia, unspecified; E03.9 Hypothyroidism, unspecified; K21.9 Gastro-esophageal reflux disease without esophagitis; G89.29 Other chronic pain; M54.9 Dorsalgia, unspecified; I25.10 Atherosclerotic heart disease of native coronary artery without angina pectoris; E11.9 Type 2 diabetes mellitus without complications; K56.7 Ileus, unspecified; Z95.5 Presence of coronary angioplasty implant and graft; Z28.21 Immunization not carried out because of patient refusal; Z79.899 Other long term (current) drug therapy; Z79.890 Hormone replacement therapy; Z79.82 Long term (current) use of aspirin; Z79.4 Long term (current) use of insulin
CPT/HCPCS: 36415; 36416; 71045; 71275; 72191; 72192; 74018; 74019; 74175; 74250; 80048; 80053; 83605; 83735; 84100; 84145; 84443; 84484; 85025; 85610; 85730; 90471; 90662; 93005; 94640; 96361; 96374; 96376; C9113; G0008; J0694; J1100; J1650; J1815; J2001; J2270; J2405; J2704; J2710; J3010; J3490; J7620; Q9963; Q9967; S0020

== ENCOUNTER 2021-07-26 07:58 | Outpatient (CLI) | payer MEDICARE, OTHER ==
[2021-07-26 11:28] LABS: #Basophils 0.1 10x3/uL (0.0-0.2); #Eosinphils 0.9 10x3/uL (0.0-0.5); #Monocytes 0.6 10x3/uL (0.0-1.1); %Basophils 0.7 % (0.0-2.0); %Eosinophils 9.7 % (0.0-6.0); %Lymphocytes 18.3 % (18.0-47.0); %Monocytes 6.4 % (0.0-10.0); %Neutrophils 64.7 % (40.0-75.0); Hemoglobin 11.9 g/dL (13.5-17.5); Mean Corpuscular HGB CONC 32.2 g/dL (32.0-36.0); Mean Corpuscular Hemoglobin 30.4 pg (27.0-33.0); Mean Corpuscular Volume 94.6 fl (81.2-95.1); Mean Platelet Volume 9.9 fl (7.4-10.4); Platelet Count 231 10x3/uL (150-450); Red Blood Cell (RBC) Count 3.91 10x6/uL (4.32-5.72); White Blood Cell (WBC) Count 9.2 10x3/uL (3.5-10.5)
[2021-07-26 11:50] LABS: ALT (SGPT) 13 U/L (8-55); AST (SGOT) 15 U/L (5-34); Albumin 3.9 g/dL (3.4-4.8); Alkaline Phosphatase 116 U/L (40-110); Anion Gap 13 mmol/L (10-20); BUN (Urea Nitrogen) 17 mg/dL (8.4-25.7); Bilirubin, Total 0.4 mg/dL (0.2-1.2); Calc. Creatinine Clearance 0 mL/min (70-130); Calcium 8.8 mg/dL (7.8-10.44); Carbon Dioxide 26 mmol/L (23-31); Chloride 102 mmol/L (98-107); Globulin 3.8 g/dL (2.4-3.5); Glucose 163 mg/dL (83-110); Potassium 4.6 mmol/L (3.5-5.1); Protein, Total 7.7 g/dL (5.8-8.1); Sodium 136 mmol/L (136-145)
[2021-07-27 00:44] LABS: SARS-CoV-2 PCR by NAA Not Detected (NotDetected)
== END 2021-07-26 07:59 | disposition home or self-care (01) ==
LOC: LABBT 07:58
PROVIDERS: ATTEND Surgery
DX: Z01.812 Encounter for preprocedural laboratory examination (principal); Z20.822 Contact with and (suspected) exposure to COVID-19
CPT/HCPCS: 80053; 85025; U0003; U0005

== ENCOUNTER 2021-08-12 07:28 | Day surgery (SDC) | payer MEDICARE, OTHER ==
[2021-08-10 10:53] VITALS: BMI 36.3
[2021-08-12 08:59] LABS: Cardiac Risk 2.2 (Less than 4.5)
[2021-08-12] MEDS ORDERED: Nitroglycerin 100MG/250ML BOT 250 ML ONE (08:59)
[2021-08-12] MEDS ORDERED: Heparin 10,000 UNITS/ 10 ML VIAL ONE (08:59)
[2021-08-12] MEDS ORDERED: Verapamil 5 MG/2 ML VIAL ONE (08:59)
[2021-08-12] MEDS ORDERED: Iopamidol 370 76% 100 ML VIAL ONE (09:44)
[2021-08-12] MEDS ORDERED: Fentanyl 100 MCG/2 ML VIAL ONE (10:04)
[2021-08-12] MEDS ORDERED: Midazolam HCl 2 mg/2 ml Vial ONE (10:04)
== END 2021-08-12 13:35 | disposition home or self-care (01) ==
LOC: SDC 07:28
PROVIDERS: ATTEND Internal Medicine Cardiovascular Disease
PROC: 4A023N7 Measurement of Cardiac Sampling and Pressure, Left Heart, Percutaneous Approach (ICD-10-PCS; principal; 2021-08-12)
PROC: B2111ZZ Fluoroscopy of Multiple Coronary Arteries using Low Osmolar Contrast (ICD-10-PCS; 2021-08-12)
DX: R94.39 Abnormal result of other cardiovascular function study (principal); I25.10 Atherosclerotic heart disease of native coronary artery without angina pectoris; I73.9 Peripheral vascular disease, unspecified; I11.0 Hypertensive heart disease with heart failure; I50.9 Heart failure, unspecified; Z87.891 Personal history of nicotine dependence; Z79.01 Long term (current) use of anticoagulants; Z79.4 Long term (current) use of insulin; Z79.82 Long term (current) use of aspirin; Z79.84 Long term (current) use of oral hypoglycemic drugs; Z79.890 Hormone replacement therapy; Z79.899 Other long term (current) drug therapy
CPT/HCPCS: 80061; 93458; 99152; J1644; J2250; J3010; Q9967

== ENCOUNTER 2022-05-11 14:28 | Outpatient (CLI) | payer OTHER | END 2022-05-11 14:29 | disposition home or self-care (01) | LOC: BICRAD 14:28 | PROVIDERS: ATTEND Surgery | DX: R05.9 Cough, unspecified (principal); J84.10 Pulmonary fibrosis, unspecified | CPT/HCPCS: 71046 ==

== ENCOUNTER 2022-09-28 19:30 | Outpatient (CLI) | payer OTHER, MEDICAID | END 2022-09-28 19:31 | disposition home or self-care (01) | LOC: SLEEPLAB 19:30 | PROVIDERS: ATTEND Internal Medicine Critical Care Medicine | DX: G47.33 Obstructive sleep apnea (adult) (pediatric) (principal); G47.61 Periodic limb movement disorder | CPT/HCPCS: 95810 ==

== ENCOUNTER 2022-11-12 19:00 | Outpatient (CLI) | payer OTHER, MEDICAID | END 2022-11-12 19:01 | disposition home or self-care (01) | LOC: SLEEPLAB 19:00 | PROVIDERS: ATTEND Internal Medicine Critical Care Medicine | DX: G47.33 Obstructive sleep apnea (adult) (pediatric) (principal); R06.83 Snoring; I10 Essential (primary) hypertension; E11.9 Type 2 diabetes mellitus without complications; J44.9 Chronic obstructive pulmonary disease, unspecified; F32.A Depression, unspecified; M10.9 Gout, unspecified; F41.9 Anxiety disorder, unspecified; G89.29 Other chronic pain; K56.609 Unspecified intestinal obstruction, unspecified as to partial versus complete obstruction; G47.61 Periodic limb movement disorder; I49.3 Ventricular premature depolarization | CPT/HCPCS: 95811 ==

== ENCOUNTER 2022-12-17 12:34 | Inpatient (IN) | payer OTHER, MEDICAID ==
[~2022-12-17 12:34] MED LIST changes: +Iopamidol-370 76% 500 ML MDV (1 ML CHARGE) ONE; -Prevnar 13-Val Conj/PF 0.5 ML SYRINGE IM ONE
[2022-12-17] MEDS ORDERED: Cefepime 2 GM VIAL ONE (12:55)
[2022-12-17 13:09] LABS: Hematocrit 32.8 % (42.0-52.0); Hemoglobin 10.8 g/dL (14.0-18.0); Mean Corpuscular HGB CONC 32.9 g/dL (32.0-36.0); Mean Corpuscular Hemoglobin 30.3 pg (27.0-31.0); Mean Corpuscular Volume 91.9 fl (78.0-98.0); Mean Platelet Volume 9.6 fL (7.4-10.4); Platelet Count 201 10x3/uL (130-400); RBC Distribution Width 13.1 % (11.5-14.5); Red Blood Cell (RBC) Count 3.57 mill/uL (4.70-6.10)
[2022-12-17 13:11] LABS: Delete Auto Diff?? YES; Manual Diff?? YES
[2022-12-17] MEDS ORDERED: Vancomycin 1.5 GRAM/300 ML BAG 1.5 GM in Premix Bag 1 BAG IVPB SCH (13:15)
[2022-12-17 13:30] LABS: Band 39 % (5-11); Burr Cells SLIGHT = 2-5 cells HPF (0-1); CellaVision Operator ID LAB.KB; Lymphocytes 3 % (21-51); Monocytes 1 % (0-10); Neutrophil 57 % (42-75); Ovalocytes SLIGHT = 2-5 cells HPF (0-1); Platelet Adequacy Comment Platelets Normal; Polychromasia SLIGHT = 2-3 cells HPF (0-2); Smudge Cells 5.9 %; Total Cell Count 102
[2022-12-17 13:34] LABS: ALT (SGPT) 11 U/L (8-55); AST (SGOT) 24 U/L (5-34); Albumin 3.3 g/dL (3.4-4.8); Alkaline Phosphatase 107 U/L (40-110); Anion Gap 13 mmol/L (10-20); BUN (Urea Nitrogen) 22 mg/dL (8.4-25.7); Bilirubin, Total 0.5 mg/dL (0.2-1.2); CK (CPK) 41 U/L (30-200); Calc. Creatinine Clearance 0 mL/min (70-130); Calcium 8.6 mg/dL (7.8-10.44); Carbon Dioxide 20 mmol/L (23-31); Chloride 104 mmol/L (98-107); Estimated GFR 47; Glucose 196 mg/dL (83-110); Lipase 6 U/L (8-78); Potassium 4.2 mmol/L (3.5-5.1); Protein, Total 7.3 g/dL (5.8-8.1); Sodium 133 mmol/L (136-145)
[2022-12-17 13:38] LABS: Troponin I 0.032 ng/mL (< 0.028)
[2022-12-17] MEDS ORDERED: NOREPINEPHRINE 8 MG/250 ML-D5W 250 ML ONE (14:04)
[2022-12-17] MEDS ORDERED: Acetaminophen 500 MG TAB ONE (14:55)
[2022-12-17 15:36] LABS: Bacteria/HPF None Seen HPF (None Seen); Bilirubin Negative (Negative); Blood, Urine Negative (Negative); CAUTI Indications for Culture Dysuria,urgency,freq; Clarity Clear (Clear); Glucose, Urine (Dipstick) 100 mg/dL (Negative); Ketone, Urine Negative (Negative); Leukocyte Negative Leu/uL (Negative); Nitrite Negative (Negative); Protein, Urine (Dipstick) 10 mg/dL (Neg-Trace); RBC/HPF 0-3 HPF (0-3); Specific Gravity, Urine 1.013 (1.002-1.036); Squamous Epithelial 0-3 HPF (0-3); Urobilinogen Normal mg/dL (Less than 2); WBC/HPF 0-3 HPF (0-3)
[2022-12-17 15:39] LABS: Urine Culture Reflex No No
[2022-12-17 16:09] LABS: SARS-CoV-2 NAA Rapid Test Not Detected (NotDetected)
[2022-12-17] MEDS ORDERED: Dextrose 50% Abboject 50 ML SYRINGE SLOW IVP PRN (16:10)
[2022-12-17] MEDS ORDERED: Dextrose 5% in Water 1,000 ML IV PRN (16:10)
[2022-12-17] MEDS ORDERED: Acetaminophen 325 MG TAB PO PRN (16:10)
[2022-12-17] MEDS ORDERED: Glucagon 1 MG/ML KIT IM PRN (16:10)
[2022-12-17] MEDS ORDERED: HumaLOG 300 UNITS/3 ML VIAL SC PRN (16:14)
[2022-12-17] MEDS ORDERED: Ipratropium/Albuterol 3 ML NEB NEB PRN (16:14)
[2022-12-17] MEDS ORDERED: NOREPINEPHRINE 8 MG/250 ML-D5W 250 ML IVPB PRN (16:28)
[2022-12-17] MEDS ORDERED: Lactated Ringer's 1,000 ML IV SCH (16:30)
[2022-12-17 16:48] LABS: Lactic Acid 2.4 mmol/L (0.5-2.2)
[2022-12-17 16:56] LABS: Troponin I 0.029 ng/mL (< 0.028)
[2022-12-17] MEDS ORDERED: HYDROcodone/Acetaminophen 10/325 mg Tablet PO PRN (17:17)
[2022-12-17] MEDS ORDERED: Cyclobenzaprine 10 MG TAB PO PRN (17:17)
[2022-12-17 18:09] VITALS: BMI 37.2
[2022-12-17] MEDS: Ipratropium/Albuterol 3 ML NEB NEB SCH (18:48)
[2022-12-17] MEDS ORDERED: Vancomycin HCl 500 MG in Sodium Chloride 0.9% 100 ML IVPB SCH (20:00)
[2022-12-17] MEDS ORDERED: Methocarbamol 500 MG TAB PO SCH (21:00)
[2022-12-17] MEDS ORDERED: Cefepime 2 GM in Sodium Chloride 0.9% 100 ML IVPB SCH (21:00)
[2022-12-17] MEDS ORDERED: Gabapentin 300 MG CAP PO SCH (21:00)
[2022-12-17] MEDS: Atorvastatin Calcium 10 MG TAB PO SCH (21:00)
[2022-12-17] MEDS ORDERED: Vancomycin HCl 1.5 GM in Sodium Chloride 0.9% 250 ML 300 ML IVPB SCH (21:00)
[2022-12-17] MEDS: Rivaroxaban 2.5 MG TAB PO SCH (21:11)
[2022-12-17 21:27] LABS: Lactic Acid 2.2 mmol/L (0.5-2.2)
[2022-12-17] MEDS: HumaLOG 300 UNITS/3 ML VIAL SC PRN (22:08)
[2022-12-18] MEDS: Cefepime 1 GM in Sodium Chloride 0.9% 100 ML IVPB SCH ×2 (00:37→11:28)
[2022-12-18 03:36] LABS: Hemoglobin 8.9 g/dL (14.0-18.0); Mean Corpuscular HGB CONC 31.8 g/dL (32.0-36.0); Mean Corpuscular Hemoglobin 29.9 pg (27.0-31.0); Mean Platelet Volume 9.5 fL (7.4-10.4); Platelet Count 173 10x3/uL (130-400); RBC Distribution Width 13.3 % (11.5-14.5); Red Blood Cell (RBC) Count 2.98 mill/uL (4.70-6.10); White Blood Cell (WBC) Count 9.6 10x3/uL (4.8-10.8)
[2022-12-18 03:48] LABS: Delete Auto Diff?? YES; Manual Diff?? YES
[2022-12-18 04:06] LABS: ALT (SGPT) 8 U/L (8-55); AST (SGOT) 13 U/L (5-34); Albumin 2.8 g/dL (3.4-4.8); Alkaline Phosphatase 92 U/L (40-110); Anion Gap 10 mmol/L (10-20); BUN (Urea Nitrogen) 17 mg/dL (8.4-25.7); Bilirubin, Total 0.3 mg/dL (0.2-1.2); Calc. Creatinine Clearance 96 mL/min (70-130); Calcium 8.1 mg/dL (7.8-10.44); Carbon Dioxide 25 mmol/L (23-31); Chloride 105 mmol/L (98-107); Estimated GFR 77; Globulin 3.7 g/dL (2.4-3.5); Glucose 232 mg/dL (83-110); Protein, Total 6.5 g/dL (5.8-8.1); Sodium 136 mmol/L (136-145)
[2022-12-18 04:23] LABS: Band 9 % (5-11); CellaVision Operator ID lab.abc; Eosinophils 5 % (0-10); Lymphocytes 11 % (21-51); Monocytes 4 % (0-10); Neutrophil 68 % (42-75); Platelet Adequacy Comment Platelets Normal; RBC Morphology Within Normal Limits; Total Cell Count 100
[2022-12-18] MEDS: HumaLOG 300 UNITS/3 ML VIAL SC PRN ×3 (05:56→22:43)
[2022-12-18] MEDS: Levothyroxine Sodium 50 MCG TAB PO SCH (05:57)
[2022-12-18] MEDS: Ipratropium/Albuterol 3 ML NEB NEB SCH ×4 (07:29→19:00)
[2022-12-18] MEDS: Aspirin Chewable 81 MG TAB PO SCH (08:08)
[2022-12-18] MEDS: Linaclotide [Linzess] 145 MCG Capsule PO SCH (10:14)
[2022-12-18] MEDS: Rivaroxaban 2.5 MG TAB PO SCH ×2 (11:28→19:46)
[2022-12-18] MEDS: HumuLIN 70/30 100 Unit/ ml 10 ml Vial SC SCH ×2 (11:29→16:10)
[2022-12-18] MEDS ORDERED: Cefepime 2 GM in Sodium Chloride 0.9% 100 ML IVPB SCH (13:00)
[2022-12-18] MEDS ORDERED: Vancomycin 1.5 GRAM/300 ML BAG 1.5 GM in Premix Bag 1 BAG IVPB SCH (14:00)
[2022-12-18] MEDS: Atorvastatin Calcium 10 MG TAB PO SCH (19:46)
[2022-12-19] MEDS ORDERED: Cefepime 2 GM in Sodium Chloride 0.9% 100 ML IVPB SCH (01:00)
[2022-12-19] MEDS ORDERED: HYDROcodone/Acetaminophen 10/325 mg Tablet PO PRN (05:28)
[2022-12-19] MEDS ORDERED: Acetaminophen 325 MG TAB PO PRN (05:28)
[2022-12-19] MEDS: Levothyroxine Sodium 50 MCG TAB PO SCH (06:24)
[2022-12-19] MEDS ORDERED: Cosyntropin 250 MCG VIAL SLOW IVP SCH (07:00)
[2022-12-19] MEDS: Ipratropium/Albuterol 3 ML NEB NEB SCH ×4 (07:49→18:09)
[2022-12-19 08:42] LABS: #Eosinphils 0.6 thou/uL (0.0-0.7); #Monocytes 0.7 thou/uL (0.11-0.59); #Neutrophils 6.7 thou/uL (1.40-6.50); %Basophils 0.2 % (0.0-1.0); %Eosinophils 6.4 % (0.0-10.0); %Lymphocytes 12.4 % (21.0-51.0); %Monocytes 7.7 % (0.0-10.0); %Neutrophils 72.8 % (42.0-75.0); Hematocrit 28.5 % (42.0-52.0); Hemoglobin 9.4 g/dL (14.0-18.0); Mean Corpuscular Hemoglobin 30.6 pg (27.0-31.0); Mean Corpuscular Volume 92.8 fl (78.0-98.0); Mean Platelet Volume 9.9 fL (7.4-10.4); Platelet Count 193 10x3/uL (130-400); RBC Distribution Width 13.4 % (11.5-14.5); Red Blood Cell (RBC) Count 3.07 mill/uL (4.70-6.10); White Blood Cell (WBC) Count 9.2 10x3/uL (4.8-10.8)
[2022-12-19] MEDS: Aspirin Chewable 81 MG TAB PO SCH (09:01)
[2022-12-19] MEDS: Linaclotide [Linzess] 145 MCG Capsule PO SCH (09:02)
[2022-12-19] MEDS: HumuLIN 70/30 100 Unit/ ml 10 ml Vial SC SCH ×2 (09:02→16:44)
[2022-12-19] MEDS: Rivaroxaban 2.5 MG TAB PO SCH ×2 (09:02→21:33)
[2022-12-19 09:12] LABS: ALT (SGPT) 8 U/L (8-55); AST (SGOT) 12 U/L (5-34); Albumin 3.2 g/dL (3.4-4.8); Alkaline Phosphatase 94 U/L (40-110); Anion Gap 12 mmol/L (10-20); BUN (Urea Nitrogen) 9 mg/dL (8.4-25.7); Bilirubin, Total 0.5 mg/dL (0.2-1.2); Calc. Creatinine Clearance 112 mL/min (70-130); Calcium 8.7 mg/dL (7.8-10.44); Carbon Dioxide 23 mmol/L (23-31); Chloride 103 mmol/L (98-107); Estimated GFR 91; Globulin 4.1 g/dL (2.4-3.5); Glucose 212 mg/dL (83-110); Potassium 3.8 mmol/L (3.5-5.1); Protein, Total 7.3 g/dL (5.8-8.1); Sodium 134 mmol/L (136-145)
[2022-12-19] MEDS ORDERED: Docusate 100 MG CAP PO PRN (09:23)
[2022-12-19] MEDS ORDERED: Carvedilol 6.25 MG TAB PO SCH ×2 (09:30→21:00)
[2022-12-19] MEDS ORDERED: Sacubitril 49 MG/Valsartan 51 MG TABLET PO SCH ×2 (09:30→21:00)
[2022-12-19] MEDS ORDERED: Azithromycin 250 MG TAB PO SCH (10:30)
[2022-12-19 10:55] LABS: Iron 12 ug/dL (65-175); Iron Binding Capacity, Total 270 mcg/dL (261-462)
[2022-12-19] MEDS: HumaLOG 300 UNITS/3 ML VIAL SC PRN (11:47)
[2022-12-19] MEDS ORDERED: Non-Formulary Item 1 EACH (Ipratropium/Albuterol Sulfate [Combivent Respimat] 120 PUFF In INH PRN (15:34)
[2022-12-19] MEDS: metFORMIN 500 MG TAB PO SCH (16:44)
[2022-12-19] MEDS: Amoxicillin/Potassium Clav 875 MG TAB PO SCH (21:33)
[2022-12-19] MEDS: Carvedilol 6.25 MG TAB PO SCH (21:33)
[2022-12-19] MEDS: Atorvastatin Calcium 10 MG TAB PO SCH (21:33)
[2022-12-19] MEDS: Sacubitril 49 MG/Valsartan 51 MG TABLET PO SCH (21:33)
[2022-12-20 01:21] VITALS: TEMP 97.9
[2022-12-20] MEDS: Levothyroxine Sodium 50 MCG TAB PO SCH (06:05)
[2022-12-20] MEDS: Ipratropium/Albuterol 3 ML NEB NEB SCH (07:12)
[2022-12-20] MEDS ORDERED: Ferrous Gluconate 324 MG TAB PO SCH (08:00)
[2022-12-20 08:01] LABS: #Eosinphils 0.8 thou/uL (0.0-0.7); #Monocytes 0.6 thou/uL (0.11-0.59); #Neutrophils 7.5 thou/uL (1.40-6.50); %Basophils 0.3 % (0.0-1.0); %Eosinophils 7.5 % (0.0-10.0); %Lymphocytes 12.1 % (21.0-51.0); %Monocytes 5.8 % (0.0-10.0); %Neutrophils 73.8 % (42.0-75.0); Hematocrit 32.1 % (42.0-52.0); Hemoglobin 10.6 g/dL (14.0-18.0); Mean Corpuscular Hemoglobin 30.3 pg (27.0-31.0); Mean Corpuscular Volume 91.7 fl (78.0-98.0); Mean Platelet Volume 9.3 fL (7.4-10.4); Platelet Count 204 10x3/uL (130-400); RBC Distribution Width 13.2 % (11.5-14.5); White Blood Cell (WBC) Count 10.1 10x3/uL (4.8-10.8)
[2022-12-20 08:16] VITALS: BP 148/79
[2022-12-20 08:26] LABS: ALT (SGPT) 11 U/L (8-55); AST (SGOT) 18 U/L (5-34); Albumin 3.3 g/dL (3.4-4.8); Alkaline Phosphatase 95 U/L (40-110); Anion Gap 13 mmol/L (10-20); BUN (Urea Nitrogen) 10 mg/dL (8.4-25.7); Bilirubin, Total 0.6 mg/dL (0.2-1.2); Calc. Creatinine Clearance 112 mL/min (70-130); Calcium 9.2 mg/dL (7.8-10.44); Carbon Dioxide 24 mmol/L (23-31); Chloride 102 mmol/L (98-107); Estimated GFR 91; Globulin 4.5 g/dL (2.4-3.5); Glucose 166 mg/dL (83-110); Potassium 3.6 mmol/L (3.5-5.1); Protein, Total 7.8 g/dL (5.8-8.1); Sodium 135 mmol/L (136-145)
[2022-12-20] MEDS ORDERED: Losartan 25 MG TAB PO SCH (09:00)
[2022-12-20] MEDS ORDERED: Azithromycin 250 MG TAB PO SCH (09:00)
[2022-12-20] MEDS: Linaclotide [Linzess] 145 MCG Capsule PO SCH (10:06)
[2022-12-20] MEDS: Sacubitril 49 MG/Valsartan 51 MG TABLET PO SCH (10:07)
[2022-12-20] MEDS: Carvedilol 6.25 MG TAB PO SCH (10:07)
[2022-12-20] MEDS: Rivaroxaban 2.5 MG TAB PO SCH (10:07)
[2022-12-20] MEDS: Aspirin Chewable 81 MG TAB PO SCH (10:07)
[2022-12-20] MEDS: metFORMIN 500 MG TAB PO SCH (10:07)
[2022-12-20] MEDS: Amoxicillin/Potassium Clav 875 MG TAB PO SCH (10:08)
[2022-12-20] MEDS: HumuLIN 70/30 100 Unit/ ml 10 ml Vial SC SCH (10:08)
== END 2022-12-20 12:17 | disposition home or self-care (01) | DRG 871 ==
LOC: ERS 12:34 → CCU 15:38 → T4-B 12-19 12:21
PROVIDERS: ADMIT Family Medicine; ATTEND Family Medicine
PROC: 3E03329 Introduction of Other Anti-infective into Peripheral Vein, Percutaneous Approach (ICD-10-PCS; principal; 2022-12-17)
PROC: 3E033XZ Introduction of Vasopressor into Peripheral Vein, Percutaneous Approach (ICD-10-PCS; 2022-12-17)
DX: A41.9 Sepsis, unspecified organism (principal); I21.A1 Myocardial infarction type 2; J96.01 Acute respiratory failure with hypoxia; R65.21 Severe sepsis with septic shock; J18.9 Pneumonia, unspecified organism; N17.9 Acute kidney failure, unspecified; E87.20 Acidosis, unspecified; E87.1 Hypo-osmolality and hyponatremia; J44.9 Chronic obstructive pulmonary disease, unspecified; I11.0 Hypertensive heart disease with heart failure; I50.9 Heart failure, unspecified; E03.9 Hypothyroidism, unspecified; D64.9 Anemia, unspecified; M54.50 Low back pain, unspecified; G47.33 Obstructive sleep apnea (adult) (pediatric); F03.90 Unspecified dementia, unspecified severity, without behavioral disturbance, psychotic disturbance, mood disturbance, and anxiety; I95.9 Hypotension, unspecified; E11.40 Type 2 diabetes mellitus with diabetic neuropathy, unspecified; F32.9 Major depressive disorder, single episode, unspecified; K21.9 Gastro-esophageal reflux disease without esophagitis; F17.210 Nicotine dependence, cigarettes, uncomplicated; R53.81 Other malaise; R77.8 Other specified abnormalities of plasma proteins; Z20.822 Contact with and (suspected) exposure to COVID-19; Z90.49 Acquired absence of other specified parts of digestive tract; Z95.810 Presence of automatic (implantable) cardiac defibrillator; Z79.890 Hormone replacement therapy; Z79.82 Long term (current) use of aspirin
CPT/HCPCS: 36415; 36416; 36556; 51702; 70450; 71045; 71260; 74177; 80053; 80400; 81001; 82533; 82550; 82607; 82728; 83540; 83550; 83605; 83690; 83880; 84145; 84484; 85025; 87040; 87081; 87086; 93005; 94640; 96365; 96366; 96367; J0692; J1815; J3370; J3490; J7120; J7620; Q9967